=== PATIENT | male | born 1945 | race Caucasian/White ===

== ENCOUNTER 2017-03-21 18:31 | Emergency (ER) | payer MEDICARE, MEDICAID ==
[2017-03-21 19:06] LABS: % BASOPHILS 0.7 % (0.0-2.0); % EOSINOPHILS 2.6 % (0.0-5.0); % LYMPHOCYTES 29.7 % (20.0-50.0); % MONOCYTES 11.6 % (2.0-10.0); % NEUTROPHILS 55.4 % (40.0-80.0); MEAN CELL VOLUME 86.9 fl (80-99); MEAN CORPUSCULAR HEMOGLOBIN 29.7 pg (27.0-31.0); MEAN CORPUSCULAR HGB CONC 34.1 pg (28.0-36.0); MEAN PLATELET VOLUME 7.6 fl; PLATELET COUNT 215 Th/cmm (150-400); RED BLOOD COUNT 3.65 Mil/cmm (3.80-5.80); RED CELL DISTRIBUTION WIDTH 13.7 % (11.5-20.0); WHITE BLOOD COUNT 7.2 Th/cmm (4.8-10.8)
[2017-03-21 19:20] LABS: INR 1.06 (0.5-1.4)
[2017-03-21 19:24] LABS: ALB/GLOB RATIO 1.3 (1.0-1.8); ALKALINE PHOSPHATASE 63 U/L (34-104); ANION GAP 8.9 (7.0-16.0); BILIRUBIN,TOTAL 0.9 mg/dL (0.3-1.0); BUN - UREA NITROGEN 18 mg/dL (7-25); BUN/CREATININE RATIO 22.5; CALCIUM SERUM 9.3 mg/dL (8.6-10.3); CARBON DIOXIDE 25.9 mEq/L (21.0-31.0); CHLORIDE 104 mEq/L (98-107); CHOLESTEROL 132 mg/dL (<200); CREATININE - SERUM 0.8 mg/dL (0.7-1.3); GLUCOSE 100 mg/dL (70-105); POTASSIUM SERUM 3.8 mEq/L (3.5-5.1); SGOT 18 U/L (13-39); SGPT/ALT 16 U/L (7-52); SODIUM SERUM 135 mEq/L (136-145); TRIGLYCERIDES 100 mg/dL (<150)
[2017-03-21 19:25] LABS: HEMATOCRIT 31.8 % (39.0-49.0); HEMOGLOBIN 10.8 gm/dL (12.6-17.4)
--- NOTE | 2017-03-21 19:28 | ED Physician Chart ---
Chief Complaint/HPI - Patient Information Date Seen:: 03/21/17 Time Seen:: 19:20 Allergies:: Allergies Allergy/AdvReac Type Severity Reaction Status Date / Time aripiprazole [From Abilify] Allergy Verified 08/18/16 02:46 trazodone Allergy Verified 08/18/16 21:01 Vitals:: Vital Signs - 8 hr 03/21/17 19:06 Temp 99.0 F HR 72 RR 17 BP 136/50 O2 Sat % 96 Review of Systems - Review of Systems General/Constitutional: No fever, No chills, No weight loss, No weakness, No diaphoresis, No edema, No loss of appetite Skin: No skin lesions, No rash, No bruising Head: No headache, No light-headedness Eyes: No loss of vision, No pain, No diplopia ENT: No earache, No nasal drainage, No sore throat, No tinnitus Neck: No neck pain, No swelling, No thyromegaly, No stiffness, No mass noted Cardio Vascular: No chest pain, No palpitations, No PND, No orthopnea, No edema Pulmonary: No SOB, No cough, No sputum, No wheezing GI: No nausea, No vomiting, No diarrhea, No pain, No melena, No hematochezia, No constipation, No hematemesis G/U: No dysuria, No frequency, No hematuria Musculoskeletal: No bone or joint pain, No back pain, No muscle pain Endocrine: No polyuria, No polydipsia Psychiatric: No prior psych history, No depression, No anxiety, No suicidal ideation Hematopoietic: No bruising, No lymphadenopathy Allergic/Immuno: No urticaria, No angioedema Neurological: No syncope, No focal symptoms, No weakness, No paresthesia, No headache, No seizure, No dizziness, No confusion, No vertigo Past Medical History - Past Medical History Obtainable: Yes Past Medical History: HTN, CVA/TIA, Dyslipidemia, Dementia Family History: None Social History: Smoker, Non Smoker, No Alcohol, No Drug Use, Care Facility Surgical History: None Psychiatricy History: None Family Medical History - Family Member Mother History Unknown: Yes Physical Exam - Physical Examination General/Constitutional: Awake, Well-developed, well-nourished, Alert, No distress, GCS 15, Non-toxic appearing, Ambulatory Other Gen/Cons comments:: demented Head: Atraumatic Eyes: Lids, conjuctiva normal, PERRL, EOMI Skin: Nl inspection, No rash, No skin lesions, No ecchymosis, Well hydrated, No lymphadenopathy ENMT: External ears, nose nl, Nasal exam nl, Lips, teeth, gums nl Neck: Nontender, Full ROM w/o pain, No JVD, No nuchal rigidity, No bruit, No mass, No stridor Respiratory: Nl effort/Exclusion, Clear to Auscultation, No Wheeze/Rhonchi/Rales Cardio Vascular: RRR, No murmur, gallop, rubs, NL S1 S2 GI: No tenderness/rebounding/guarding, No organomegaly, No hernia, Normal BS's, Nondistended, No mass/bruits, No McBurney tenderness : No CVA tenderness Extremities: No tenderness or effusion, Full ROM, normal strength in all extremities, No edema, Normal digits & nails Neuro/Psych: Alert/oriented, DTR's symmetric, Normal sensory exam, Normal motor strength, Judgement/insight normal, Mood normal, Normal gait, No focal deficits Misc: normal gait, Normal back, No paraspinal tenderness Labs/Radiology/EKG Results - Lab Results Results: Laboratory Tests 03/21/17 03/21/17 03/21/17 18:50 18:50 18:50 WBC 7.2 RBC 3.65 L Hgb 10.8 L D Hct 31.8 L D MCV 86.9 MCH 29.7 MCHC Differential 34.1 RDW 13.7 Plt Count 215 MPV 7.6 Neutrophils % 55.4 Lymphocytes % 29.7 Monocytes % 11.6 H Eosinophils % 2.6 Basophils % 0.7 PT 11.0 INR 1.06 PTT (Actin FS) 25.8 L Sodium Potassium Chloride Carbon Dioxide Anion Gap BUN Creatinine Est GFR ( Amer) Est GFR (Non-Af Amer) BUN/Creatinine Ratio Glucose Calcium Total Bilirubin AST ALT Alkaline Phosphatase Troponin I Total Protein Albumin Globulin Albumin/Globulin Ratio Triglycerides 100 Cholesterol 132 LDL Cholesterol Direct 91 HDL Cholesterol 30 03/21/17 03/21/17 18:50 18:50 WBC RBC Hgb Hct MCV MCH MCHC Differential RDW Plt Count MPV Neutrophils % Lymphocytes % Monocytes % Eosinophils % Basophils % PT INR PTT (Actin FS) Sodium 135 L Potassium 3.8 Chloride 104 Carbon Dioxide 25.9 Anion Gap 8.9 BUN 18 Creatinine 0.8 Est GFR ( Amer) TNP Est GFR (Non-Af Amer) TNP BUN/Creatinine Ratio 22.5 Glucose 100 Calcium 9.3 Total Bilirubin 0.9 AST 18 ALT 16 Alkaline Phosphatase 63 Troponin I < 0.01 L Total Protein 7.0 Albumin 3.9 L Globulin 3.1 Albumin/Globulin Ratio 1.3 Triglycerides Cholesterol LDL Cholesterol Direct HDL Cholesterol ED Septic Shock - . Is Septic Shock (SBP<90, OR Lactate>4 mmol\L) present?: No - <6hrs of presentation: Vital Signs: Vital Signs - 8 hr 03/21/17 19:06 Temp 99.0 F HR 72 RR 17 BP 136/50 O2 Sat % 96 Reassessment (Disposition) - Reassessment Reassessment Condition:: Unchanged - Patient Disposition Discharge/Transfer:: Acute Care w/in this hosp ED Discharge Plan - Patient Disposition Admit/Discharge/Transfer: PT DISCHARGED HOME Condition at Disposition: Improved Instructions: Bronchitis, [id number]
--- NOTE | 2017-03-22 11:22 | Diagnostic Imaging Report ---
Portable chest x-ray HISTORY: Shortness of breath The heart is enlarged. Atherosclerotic calcification seen in the aorta. No focal pulmonary processes. Surgical changes noted. IMPRESSION: 1. No acute abnormalities 2. Cardiomegaly with atherosclerotic vascular changes 3. Surgical changes
== END 2017-03-21 19:45 | disposition home or self-care (01) ==
LOC: ER 18:31
DX: F03.90 Unspecified dementia, unspecified severity, without behavioral disturbance, psychotic disturbance, mood disturbance, and anxiety (principal); I10 Essential (primary) hypertension; Z86.73 Personal history of transient ischemic attack (TIA), and cerebral infarction without residual deficits; E78.5 Hyperlipidemia, unspecified; Z88.8 Allergy status to other drugs, medicaments and biological substances
CPT/HCPCS: 36415-UA; 71010-TC; 80053-TC; 80061-TC; 84443-TC; 84484-TC; 85025-TC; 85610-TC; 85730-TC; 86592-TC; 93005

== ENCOUNTER 2017-03-22 17:13 | Inpatient (IN) | payer MEDICARE, MEDICAID ==
--- NOTE | 2017-03-22 17:51 | ED Physician Chart ---
Chief Complaint/HPI - Patient Information Date Seen:: 03/22/17 Time Seen:: 17:45 Chief Complaint:: difficulty caring for self History of Present Illness:: pt brought in by his [id number]. she is concerned he has a long hx of mental dz and has been homeless. he has mixed up his bank account and has no money and refuses to bath. she believes he is unable to care for himself. he has prior psych admits (here and others) for bipolar dz and ptsd. PMH he denies cva hx for me (but was put down as pos in dr mott report last nt) , hx of aorta repair w goretex graft, htn hx (compliant /well ctrld per pt), no DM hx, no [place] hx. pt states he is refusing to allow a lab draw bc he was here last nt for same thing and had labs done then. (Record is unclear...Dr Mott note is missing cc and hpi and shows bronchitis as dc dx? ) Labs do appear to have been done except for ua and u drug screen, which I have added. no recent fever/illness. Allergies:: Allergies Allergy/AdvReac Type Severity Reaction Status Date / Time aripiprazole [From Abilify] Allergy Verified 08/18/16 02:46 trazodone Allergy Verified 08/18/16 21:01 Vitals:: Vital Signs - 8 hr 03/22/17 17:26 Temp 98.7 F HR 80 RR 16 BP 135/60 O2 Sat % 95 Historian:: Patient, Family Member (ex-partner) Review of Systems - Review of Systems General/Constitutional: No fever, No chills, No weight loss, No weakness, No diaphoresis, No edema, No loss of appetite Skin: No skin lesions, No rash, No bruising Head: No headache, No light-headedness Eyes: No loss of vision, No pain, No diplopia ENT: No earache, No nasal drainage, No sore throat, No tinnitus Neck: No neck pain, No swelling, No thyromegaly, No stiffness, No mass noted Cardio Vascular: No chest pain, No palpitations, No PND, No orthopnea, No edema Pulmonary: No SOB, No cough, No sputum, No wheezing GI: No nausea, No vomiting, No diarrhea, No pain, No melena, No hematochezia, No constipation, No hematemesis G/U: No dysuria, No frequency, No hematuria Musculoskeletal: No bone or joint pain, No back pain, No muscle pain Endocrine: No polyuria, No polydipsia Psychiatric: Prior psych history, Depression, Anxiety, No suicidal ideation, No homicidal ideation, No auditory hallucination, No visual hallucination Hematopoietic: No bruising, No lymphadenopathy Allergic/Immuno: No urticaria, No angioedema Neurological: No syncope, No focal symptoms, No weakness, No paresthesia, No headache, No seizure, No dizziness, Confusion, No vertigo Past Medical History - Past Medical History Past Medical History: HTN, Dyslipidemia, Other (hx of aorta repair w goretex graft) Social History: Homeless (at times. has a apt now shared w some local people) Psychiatricy History: Bipolar, Dementia (? some advancing per gf), Other (ptsd) Medication: Reviewed Family Medical History - Family Member Mother History Unknown: Yes Physical Exam - Physical Examination General/Constitutional: Awake, Well-developed, well-nourished, Alert, No distress, GCS 15, Non-toxic appearing, Ambulatory Other Gen/Cons comments:: mild anxious//alert//somewhat demanding (pt wants meal before he has explained to me why he is here) Head: Atraumatic Eyes: Lids, conjuctiva normal, PERRL, EOMI Skin: Nl inspection, No rash, No skin lesions, No ecchymosis, Well hydrated, No lymphadenopathy ENMT: External ears, nose nl, Nasal exam nl, Lips, teeth, gums nl Neck: Nontender, Full ROM w/o pain, No JVD, No nuchal rigidity, No bruit, No mass, No stridor Respiratory: Nl effort/Exclusion, Clear to Auscultation, No Wheeze/Rhonchi/Rales Cardio Vascular: RRR, No murmur, gallop, rubs, NL S1 S2 GI: No tenderness/rebounding/guarding, No organomegaly, No hernia, Normal BS's, Nondistended, No mass/bruits, No McBurney tenderness : No CVA tenderness Extremities: No tenderness or effusion, Full ROM, normal strength in all extremities, No edema, Normal digits & nails Neuro/Psych: Alert/oriented, DTR's symmetric, Normal sensory exam, Normal motor strength, Mood normal, Normal gait, No focal deficits Misc: normal gait, Normal back, No paraspinal tenderness Assessment - Assessment General Assessment: requested psych eval at 7pm however it has still not been completed by 9;30pm. multiple requests made. pt is unruly at times demanding food and wandering out the door at times despite our attempts to dissuade him. he is not stating suicidal or homicidal. no evidence of hallucinations. ED Septic Shock - . Is Septic Shock (SBP<90, OR Lactate>4 mmol\L) present?: No - <6hrs of presentation: Vital Signs: Vital Signs - 8 hr 03/22/17 17:26 Temp 98.7 F HR 80 RR 16 BP 135/60 O2 Sat % 95 Reassessment (Disposition) - Reassessment Reassessment:: psy eval completed around 10pm. [facility] (11;21p) Reassessment Condition:: Unchanged - Diagnosis Diagnosis:: failure to thrive gravely psychologically disabled and unable to care for self agitation - Patient Disposition Admitted to:: [facility] Condition at Disposition:: Unchanged ED Discharge Plan - Patient Disposition Instructions: Psychosis
[2017-03-22 21:33] LABS: AMPHETAMINE URINE NEGATIVE (NEGATIVE); BARBITURATES URINE NEGATIVE (NEGATIVE)
[2017-03-22 21:34] LABS: METHADONE URINE NEGATIVE (NEGATIVE)
[2017-03-22 21:59] LABS: URINE BILIRUBIN SMALL (NEGATIVE); URINE BLOOD MODERATE (NEGATIVE); URINE COLOR YELLOW; URINE GLUCOSE (UA) 100 mg/dL (NEGATIVE); URINE KETONE NEGATIVE (NEGATIVE); URINE PH 6.5
[2017-03-22 22:00] LABS: URINE BACTERIA NONE SEEN /hpf (NONE SEEN); URINE EPITHELIAL CELLS NONE SEEN /lpf (FEW); URINE WBC 0-2 /hpf (0-5)
[2017-03-22] MEDS ORDERED: Magnesium Hydroxide (MOM) 30 mL UDC PO PRN (23:54)
[2017-03-22] MEDS ORDERED: Maalox 30 mL Cup PO PRN (23:54)
[2017-03-23 00:32] VITALS: BP 124/65
[2017-03-23] MEDS: Multivitamin Tab PO SCH (08:41)
--- NOTE | 2017-03-23 12:48 | History and Physical ---
History of Present Illness - HPI Chief Complaint: UNABLE TO CARE FOR SELF HPI: THIS IS A 71 YEAR OLD MALE IS ADMITTED TO THE GEROPSYCH UNIT. ACCORDING TO ER RECORDS PATIENT WAS BROUGHT TO THE ER BY HIS , PATIENT APPARENTLY HAS BEEN REFUSING TO TAKE BATHS. Vital Signs: Last Vital Signs Temp 97.3 F 03/23/17 06:41 Pulse 73 03/23/17 11:06 Resp 20 03/23/17 11:06 BP 151/63 03/23/17 06:41 Pulse Ox 97 03/23/17 06:41 Past Medical History Cardiovascular: Report: HTN Pulmonary: Report: No Pertinent Hx PARASITOLOGY TEACHER: Report: No Pertinent Hx GI: Report: No Pertinent Hx Psych: Report: No Pertinent Hx Musculoskeletal: Report: No Pertinent Hx Rheumatologic: Report: No pertinent Hx Infectious Disease: Report: No Pertinent Hx Renal/: Report: No Pertinent Hx Endocrine: Report: No Pertinent Hx Dermatology: Report: No Pertinent Hx - Past Surgical History Past Surgical History: Other (AORTA REPAIR WITH GORETEX GRAFT) Family Medical History - Family Member Mother History Unknown: Yes (NONCONTRIBUTORY) Ethnicity: Unknown Living Status: Unknown Hx Family Cancer: (Unknown) Hx Family Coronary Artery Disease: (Unknown) Hx Family Congestive Heart Failure: (Unknown) Hx Family Hypertension: (Unknown) Hx Family Stroke: (Unknown) Hx Family Diabetes: (Unknown) Hx Family Seizures: (Unknown) Hx Family Dementia: (Unknown) Hx Family AIDS: (Unknown) Hx Family HIV: No Hx Family COPD: (Unknown) Hx Family Hepatitis: (Unknown) Hx Family Psychiatric Problems: (Unknown) Hx Family Tuberculosis: (Unknown) Social History Smoke: <1 pack per day Alcohol: Occassional Drugs: None Lives: Alone Domestic Violence: Negative Health Maintenance Health Maintenance: Influenza Vaccine - Medications Home Medications: Home Medication Medication Instructions Recorded Type lamoTRIgine [laMICtal] 150 mg PO BID #0 tab 04/20/16 Rx Amlodipine Besylate 5 mg PO DAILY 03/21/17 History Zolpidem Tartrate [Ambien] 5 mg PO HS 03/21/17 History aripIPRAZOLE [Abilify] 10 mg PO DAILY 03/21/17 History - Allergies Allergies/Adverse Reactions: Allergies Allergy/AdvReac Type Severity Reaction Status Date / Time aripiprazole [From Abilify] Allergy Verified 08/18/16 02:46 trazodone Allergy Verified 08/18/16 21:01 Review of Systems - Review of Systems Constitutional: Denies: Fever, Chills Eyes: Denies: Pain, Vision Change ENT: Denies: No Significant, Ear Pain, Ear Discharge, Nose Pain Respiratory: Denies: No Significant, Shortness of Breath Cardiovascular: Denies: Chest Pain, Palpitations Gastrointestinal: Denies: Nausea, Vomiting, Abdominal Pain Musculoskeletal: Denies: Neck Pain, Shoulder Pain, Arm Pain, Back Pain, Hand Pain Skin: Denies: Rash Neurological: Denies: Weakness, Numbness Physical Exam - Physical Exam HEENT: Report: Ears Nose Throat within normal limits, Pharnyx within normal limits Neck: Report: Within normal limits Cardiovascular Systems: Report: +s1/s2 noted, Regular, Rate and Rhythm, no murmurs noted Respiratory: Report: Breath Sounds are within normal limits Abdomen: Report: Non-tender to palpation Back: Report: Inspection of back is within normal limits. Extremities: Report: Non-tender to palpation. Skin: Report: Color of skin is within normal limits Neuro/Psych: Report: Mood affect is within normal limits, Disoriented to name time or place - Lab Results All Lab Results last 24 hours: Laboratory Last Values Urine Source CLEAN C 03/22/17 17:15 Urine Color YELLOW 03/22/17 17:15 Urine Clarity CLEAR (CLEAR) 03/22/17 17:15 Urine pH 6.5 03/22/17 17:15 Ur Specific [place] 1.025 (1.005-1.030) 03/22/17 17:15 Urine Protein 1.0 mg/dL (NEGATIVE) 03/22/17 17:15 Urine Glucose (UA) 100 mg/dL (NEGATIVE) H 03/22/17 17:15 Urine Ketones NEGATIVE mg/dL (NEGATIVE) 03/22/17 17:15 Urine Blood MODERATE (NEGATIVE) H 03/22/17 17:15 Urine Nitrate NEGATIVE (NEGATIVE) 03/22/17 17:15 Urine Bilirubin SMALL (NEGATIVE) H 03/22/17 17:15 Urine Urobilinogen 1.0 E.U./dL (0.2 - 1.0) 03/22/17 17:15 Ur Leukocyte Esterase NEGATIVE (NEGATIVE) 03/22/17 17:15 Urine RBC 5-10 /hpf (0-5) H 03/22/17 17:15 Urine WBC 0-2 /hpf (0-5) 03/22/17 17:15 Ur Epithelial Cells NONE SEEN /lpf (FEW) 03/22/17 17:15 Urine Bacteria NONE SEEN /hpf (NONE SEEN) 03/22/17 17:15 Urine Opiates Screen NEGATIVE (NEGATIVE) 03/22/17 17:15 Urine Methadone Screen NEGATIVE (NEGATIVE) 03/22/17 17:15 Ur Barbiturates Screen NEGATIVE (NEGATIVE) 03/22/17 17:15 Ur Tricyclics Screen NEGATIVE (NEGATIVE) 03/22/17 17:15 Ur Phencyclidine Scrn NEGATIVE (NEGATIVE) 03/22/17 17:15 Amphetamines Screen NEGATIVE (NEGATIVE) 03/22/17 17:15 U Methamphetamines Scrn NEGATIVE (NEGATIVE) 03/22/17 17:15 U Benzodiazepines Scrn NEGATIVE (NEGATIVE) 03/22/17 17:15 U Cocaine Metab Screen NEGATIVE (NEGATIVE) 03/22/17 17:15 U Cannabinoids Screen POSITIVE (NEGATIVE) H 03/22/17 17:15 - Assessment Assessment: Current Active Problems Problem Status Onset PATIENT IS UNABLE TO CARE FOR SELF Acute unable to care for self htn bipolar ptsd - Plan Plan: monitor BP continue bp medications fall precautions cpm
[2017-03-24] MEDS: Multivitamin Tab PO SCH (08:14)
--- NOTE | 2017-03-24 14:12 | Internal Medicine Prog Note ---
Internal Medicine Subjective - Subjective Service Date: 03/24/17 Patient is:: asleep, verbal, in wheelchair Per staff patient has:: no adverse event Internal Medicine Objective - Results Recent Labs: Laboratory Last Values Urine Source CLEAN C 03/22/17 17:15 Urine Color YELLOW 03/22/17 17:15 Urine Clarity CLEAR (CLEAR) 03/22/17 17:15 Urine pH 6.5 03/22/17 17:15 Ur Specific [place] 1.025 (1.005-1.030) 03/22/17 17:15 Urine Protein 1.0 mg/dL (NEGATIVE) 03/22/17 17:15 Urine Glucose (UA) 100 mg/dL (NEGATIVE) H 03/22/17 17:15 Urine Ketones NEGATIVE mg/dL (NEGATIVE) 03/22/17 17:15 Urine Blood MODERATE (NEGATIVE) H 03/22/17 17:15 Urine Nitrate NEGATIVE (NEGATIVE) 03/22/17 17:15 Urine Bilirubin SMALL (NEGATIVE) H 03/22/17 17:15 Urine Urobilinogen 1.0 E.U./dL (0.2 - 1.0) 03/22/17 17:15 Ur Leukocyte Esterase NEGATIVE (NEGATIVE) 03/22/17 17:15 Urine RBC 5-10 /hpf (0-5) H 03/22/17 17:15 Urine WBC 0-2 /hpf (0-5) 03/22/17 17:15 Ur Epithelial Cells NONE SEEN /lpf (FEW) 03/22/17 17:15 Urine Bacteria NONE SEEN /hpf (NONE SEEN) 03/22/17 17:15 Urine Opiates Screen NEGATIVE (NEGATIVE) 03/22/17 17:15 Urine Methadone Screen NEGATIVE (NEGATIVE) 03/22/17 17:15 Ur Barbiturates Screen NEGATIVE (NEGATIVE) 03/22/17 17:15 Ur Tricyclics Screen NEGATIVE (NEGATIVE) 03/22/17 17:15 Ur Phencyclidine Scrn NEGATIVE (NEGATIVE) 03/22/17 17:15 Amphetamines Screen NEGATIVE (NEGATIVE) 03/22/17 17:15 U Methamphetamines Scrn NEGATIVE (NEGATIVE) 03/22/17 17:15 U Benzodiazepines Scrn NEGATIVE (NEGATIVE) 03/22/17 17:15 U Cocaine Metab Screen NEGATIVE (NEGATIVE) 03/22/17 17:15 U Cannabinoids Screen POSITIVE (NEGATIVE) H 03/22/17 17:15 - Physical Exam Vitals and I&O: Vital Signs Temp 98.1 F 03/24/17 05:55 Pulse 73 03/24/17 11:41 Resp 20 03/24/17 11:41 BP 144/67 03/24/17 08:19 Pulse Ox 96 03/24/17 05:55 Intake & Output 03/23/17 03/24/17 03/24/17 18:59 06:59 18:59 Intake Total 1000 240 Balance 1000 240 Intake: Oral 1000 240 Other: # Voids 4 1 # Bowel Movements 1 0 Active Medications: Current Medications Acetaminophen (Tylenol) 650 mg PO Q4HR PRN PRN Reason: Mild Pain / Temp above 100 Stop: 05/21/17 23:53 Al Hydrox/Mg Hydrox/Simethicone (Maalox) 30 ml PO Q4HR PRN PRN Reason: GI DISTRESS Stop: 05/21/17 23:53 Amlodipine Besylate (Norvasc) 5 mg PO DAILY KEELY Stop: 05/23/17 08:59 Last Admin: 03/24/17 08:19 Dose: 5 mg Aripiprazole (Abilify) 10 mg PO DAILY KEELY PRN Reason: Protocol Stop: 05/23/17 08:59 Last Admin: 03/24/17 08:14 Dose: 10 mg Clonidine HCl (Catapres) 0.1 mg PO Q6HR PRN PRN Reason: SBP GREATER THAN 160 Stop: 05/22/17 12:47 Lamotrigine (Lamictal) 25 mg PO BID KEELY PRN Reason: Protocol Stop: 05/22/17 09:59 Last Admin: 03/24/17 08:18 Dose: 25 mg Lamotrigine (Lamictal) 150 mg PO BID KEELY PRN Reason: Protocol Stop: 05/22/17 16:59 Last Admin: 03/24/17 08:13 Dose: 150 mg Lorazepam (Ativan) 0.5 mg PO Q4HR PRN; Protocol PRN Reason: Anxiety Stop: 04/21/17 23:53 Last Admin: 03/24/17 08:18 Dose: 0.5 mg Magnesium Hydroxide (Milk Of Magnesia) 30 ml PO HS PRN PRN Reason: Constipation Multivitamins/Vitamin C (Theragran) 1 tab PO DAILY KEELY Stop: 05/22/17 08:59 Last Admin: 03/24/17 08:14 Dose: 1 tab Mupirocin (Bactroban Oint) 1 appl NS BID KEELY Stop: 03/28/17 17:01 Quetiapine Fumarate (Seroquel) 50 mg PO BID KEELY PRN Reason: Protocol Stop: 05/22/17 09:59 Last Admin: 03/24/17 08:18 Dose: 50 mg Zolpidem Tartrate (Ambien) 5 mg PO HS PRN PRN Reason: Insomnia Stop: 05/21/17 23:53 Last Admin: 03/23/17 21:12 Dose: 5 mg General: alert HEENT: NC/AT, PERRLA Neck: Supple Lungs: CTAB Cardiovascular: RRR, Normal S1, Normal S2, without murmur Abdomen: soft, non-tender, non-distended, positive bowel sound Extremities: clear Neurological: alert - Procedures Procedures: Procedures Procedure Code Date OTHER GROUP THERAPY 94.44 05/24/10 RECREATIONAL THERAPY 93.81 05/24/10 Internal Medicine Assmt/Plan - Assessment Assessment: Current Active Problems Problem Status Onset PATIENT IS UNABLE TO CARE FOR SELF Acute unable to care for self htn bipolar ptsd - Plan Plan: monitor BP continue bp medications fall precautions cpm
[2017-03-25] MEDS: Fluticasone Propionate 0.05mg/Actuation 16gm Nasal Spray NS PRN ×2 (02:58→09:58)
[2017-03-25] MEDS: Multivitamin Tab PO SCH (09:53)
--- NOTE | 2017-03-25 12:43 | Internal Medicine Prog Note ---
Internal Medicine Subjective - Subjective Service Date: 03/25/17 Patient is:: asleep, verbal, in wheelchair Per staff patient has:: no adverse event Internal Medicine Objective - Results Recent Labs: Laboratory Last Values Urine Source CLEAN C 03/22/17 17:15 Urine Color YELLOW 03/22/17 17:15 Urine Clarity CLEAR (CLEAR) 03/22/17 17:15 Urine pH 6.5 03/22/17 17:15 Ur Specific [place] 1.025 (1.005-1.030) 03/22/17 17:15 Urine Protein 1.0 mg/dL (NEGATIVE) 03/22/17 17:15 Urine Glucose (UA) 100 mg/dL (NEGATIVE) H 03/22/17 17:15 Urine Ketones NEGATIVE mg/dL (NEGATIVE) 03/22/17 17:15 Urine Blood MODERATE (NEGATIVE) H 03/22/17 17:15 Urine Nitrate NEGATIVE (NEGATIVE) 03/22/17 17:15 Urine Bilirubin SMALL (NEGATIVE) H 03/22/17 17:15 Urine Urobilinogen 1.0 E.U./dL (0.2 - 1.0) 03/22/17 17:15 Ur Leukocyte Esterase NEGATIVE (NEGATIVE) 03/22/17 17:15 Urine RBC 5-10 /hpf (0-5) H 03/22/17 17:15 Urine WBC 0-2 /hpf (0-5) 03/22/17 17:15 Ur Epithelial Cells NONE SEEN /lpf (FEW) 03/22/17 17:15 Urine Bacteria NONE SEEN /hpf (NONE SEEN) 03/22/17 17:15 Urine Opiates Screen NEGATIVE (NEGATIVE) 03/22/17 17:15 Urine Methadone Screen NEGATIVE (NEGATIVE) 03/22/17 17:15 Ur Barbiturates Screen NEGATIVE (NEGATIVE) 03/22/17 17:15 Ur Tricyclics Screen NEGATIVE (NEGATIVE) 03/22/17 17:15 Ur Phencyclidine Scrn NEGATIVE (NEGATIVE) 03/22/17 17:15 Amphetamines Screen NEGATIVE (NEGATIVE) 03/22/17 17:15 U Methamphetamines Scrn NEGATIVE (NEGATIVE) 03/22/17 17:15 U Benzodiazepines Scrn NEGATIVE (NEGATIVE) 03/22/17 17:15 U Cocaine Metab Screen NEGATIVE (NEGATIVE) 03/22/17 17:15 U Cannabinoids Screen POSITIVE (NEGATIVE) H 03/22/17 17:15 - Physical Exam Vitals and I&O: Vital Signs Temp 97.3 F 03/25/17 06:54 Pulse 82 03/25/17 09:53 Resp 20 03/25/17 08:00 BP 129/75 03/25/17 09:53 Pulse Ox 97 03/25/17 06:54 Intake & Output 03/24/17 03/25/17 03/25/17 18:59 06:59 18:59 Intake Total 1200 Balance 1200 Intake: Oral 1200 Other: # Voids 4 2 # Bowel Movements 1 Active Medications: Current Medications Acetaminophen (Tylenol) 650 mg PO Q4HR PRN PRN Reason: Mild Pain / Temp above 100 Stop: 05/21/17 23:53 Al Hydrox/Mg Hydrox/Simethicone (Maalox) 30 ml PO Q4HR PRN PRN Reason: GI DISTRESS Stop: 05/21/17 23:53 Amlodipine Besylate (Norvasc) 5 mg PO DAILY KEELY Stop: 05/23/17 08:59 Last Admin: 03/25/17 09:53 Dose: 5 mg Clonidine HCl (Catapres) 0.1 mg PO Q6HR PRN PRN Reason: SBP GREATER THAN 160 Stop: 05/22/17 12:47 Fluticasone Propionate (Flonase) 1 spr NS BID PRN PRN Reason: Allergy Symptoms Stop: 05/23/17 16:59 Last Admin: 03/25/17 02:58 Dose: 1 spr Lamotrigine (Lamictal) 25 mg PO BID EKELY PRN Reason: Protocol Stop: 05/22/17 09:59 Last Admin: 03/25/17 09:52 Dose: 25 mg Lamotrigine (Lamictal) 150 mg PO BID KEELY PRN Reason: Protocol Stop: 05/22/17 16:59 Last Admin: 03/25/17 09:52 Dose: 150 mg Lorazepam (Ativan) 0.5 mg PO Q4HR PRN; Protocol PRN Reason: Anxiety Stop: 04/21/17 23:53 Last Admin: 03/25/17 03:04 Dose: 0.5 mg Magnesium Hydroxide (Milk Of Magnesia) 30 ml PO HS PRN PRN Reason: Constipation Multivitamins/Vitamin C (Theragran) 1 tab PO DAILY KEELY Stop: 05/22/17 08:59 Last Admin: 03/25/17 09:53 Dose: 1 tab Mupirocin (Bactroban Oint) 1 appl NS BID KEELY Stop: 03/28/17 17:01 Last Admin: 03/25/17 09:53 Dose: 1 appl Quetiapine Fumarate (Seroquel) 100 mg PO BID KEELY PRN Reason: Protocol Stop: 05/22/17 09:59 Last Admin: 03/25/17 10:04 Dose: Not Given Trazodone HCl (Desyrel) 100 mg PO HS KEELY PRN Reason: Protocol Stop: 05/24/17 20:59 Zolpidem Tartrate (Ambien) 5 mg PO HS PRN PRN Reason: Insomnia Stop: 05/21/17 23:53 Last Admin: 03/24/17 21:52 Dose: 5 mg General: alert HEENT: NC/AT, PERRLA Neck: Supple Lungs: CTAB Cardiovascular: RRR, Normal S1, Normal S2, without murmur Abdomen: soft, non-tender, non-distended, positive bowel sound Extremities: clear Neurological: alert - Procedures Procedures: Procedures Procedure Code Date OTHER GROUP THERAPY 94.44 05/24/10 RECREATIONAL THERAPY 93.81 05/24/10 Internal Medicine Assmt/Plan - Assessment Assessment: Current Active Problems Problem Status Onset PATIENT IS UNABLE TO CARE FOR SELF Acute unable to care for self htn bipolar ptsd - Plan Plan: monitor BP continue bp medications fall precautions cpm
[2017-03-26] MEDS: Multivitamin Tab PO SCH (09:31)
--- NOTE | 2017-03-26 10:00 | Internal Medicine Prog Note ---
Internal Medicine Subjective - Subjective Service Date: 03/26/17 Patient seen and examined:: with staff Patient is:: asleep, verbal, in wheelchair Per staff patient has:: no adverse event Internal Medicine Objective - Results Recent Labs: Laboratory Last Values Urine Source CLEAN C 03/22/17 17:15 Urine Color YELLOW 03/22/17 17:15 Urine Clarity CLEAR (CLEAR) 03/22/17 17:15 Urine pH 6.5 03/22/17 17:15 Ur Specific [place] 1.025 (1.005-1.030) 03/22/17 17:15 Urine Protein 1.0 mg/dL (NEGATIVE) 03/22/17 17:15 Urine Glucose (UA) 100 mg/dL (NEGATIVE) H 03/22/17 17:15 Urine Ketones NEGATIVE mg/dL (NEGATIVE) 03/22/17 17:15 Urine Blood MODERATE (NEGATIVE) H 03/22/17 17:15 Urine Nitrate NEGATIVE (NEGATIVE) 03/22/17 17:15 Urine Bilirubin SMALL (NEGATIVE) H 03/22/17 17:15 Urine Urobilinogen 1.0 E.U./dL (0.2 - 1.0) 03/22/17 17:15 Ur Leukocyte Esterase NEGATIVE (NEGATIVE) 03/22/17 17:15 Urine RBC 5-10 /hpf (0-5) H 03/22/17 17:15 Urine WBC 0-2 /hpf (0-5) 03/22/17 17:15 Ur Epithelial Cells NONE SEEN /lpf (FEW) 03/22/17 17:15 Urine Bacteria NONE SEEN /hpf (NONE SEEN) 03/22/17 17:15 Urine Opiates Screen NEGATIVE (NEGATIVE) 03/22/17 17:15 Urine Methadone Screen NEGATIVE (NEGATIVE) 03/22/17 17:15 Ur Barbiturates Screen NEGATIVE (NEGATIVE) 03/22/17 17:15 Ur Tricyclics Screen NEGATIVE (NEGATIVE) 03/22/17 17:15 Ur Phencyclidine Scrn NEGATIVE (NEGATIVE) 03/22/17 17:15 Amphetamines Screen NEGATIVE (NEGATIVE) 03/22/17 17:15 U Methamphetamines Scrn NEGATIVE (NEGATIVE) 03/22/17 17:15 U Benzodiazepines Scrn NEGATIVE (NEGATIVE) 03/22/17 17:15 U Cocaine Metab Screen NEGATIVE (NEGATIVE) 03/22/17 17:15 U Cannabinoids Screen POSITIVE (NEGATIVE) H 03/22/17 17:15 - Physical Exam Vitals and I&O: Vital Signs Temp 97.8 F 03/26/17 06:49 Pulse 77 03/26/17 09:32 Resp 18 03/26/17 06:49 BP 145/72 03/26/17 09:32 Pulse Ox 97 03/26/17 06:49 Intake & Output 03/25/17 03/26/17 03/26/17 18:59 06:59 18:59 Intake Total 1200 Balance 1200 Intake: Oral 1200 Other: # Voids 4 2 # Bowel Movements 1 Active Medications: Current Medications Acetaminophen (Tylenol) 650 mg PO Q4HR PRN PRN Reason: Mild Pain / Temp above 100 Stop: 05/21/17 23:53 Al Hydrox/Mg Hydrox/Simethicone (Maalox) 30 ml PO Q4HR PRN PRN Reason: GI DISTRESS Stop: 05/21/17 23:53 Amlodipine Besylate (Norvasc) 5 mg PO DAILY [facility] Stop: 05/23/17 08:59 Last Admin: 03/26/17 09:32 Dose: 5 mg Clonidine HCl (Catapres) 0.1 mg PO Q6HR PRN PRN Reason: SBP GREATER THAN 160 Stop: 05/22/17 12:47 Fluticasone Propionate (Flonase) 1 spr NS BID PRN PRN Reason: Allergy Symptoms Stop: 05/23/17 16:59 Last Admin: 03/25/17 09:58 Dose: 1 spr Lamotrigine (Lamictal) 25 mg PO BID [facility] PRN Reason: Protocol Stop: 05/22/17 09:59 Last Admin: 03/26/17 09:32 Dose: 25 mg Lamotrigine (Lamictal) 150 mg PO BID [facility] PRN Reason: Protocol Stop: 05/22/17 16:59 Last Admin: 03/26/17 09:29 Dose: 150 mg Lorazepam (Ativan) 0.5 mg PO Q4HR PRN; Protocol PRN Reason: Anxiety Stop: 04/21/17 23:53 Last Admin: 03/25/17 22:15 Dose: 0.5 mg Magnesium Hydroxide (Milk Of Magnesia) 30 ml PO HS PRN PRN Reason: Constipation Multivitamins/Vitamin C (Theragran) 1 tab PO DAILY [facility] Stop: 05/22/17 08:59 Last Admin: 03/26/17 09:31 Dose: 1 tab Mupirocin (Bactroban Oint) 1 appl NS BID [facility] Stop: 03/28/17 17:01 Last Admin: 03/26/17 09:29 Dose: 1 appl Quetiapine Fumarate (Seroquel) 100 mg PO BID [facility] PRN Reason: Protocol Stop: 05/22/17 09:59 Last Admin: 03/26/17 09:30 Dose: 100 mg Zolpidem Tartrate (Ambien) 5 mg PO HS PRN PRN Reason: Insomnia Stop: 05/21/17 23:53 Last Admin: 03/25/17 22:13 Dose: 5 mg General: alert HEENT: NC/AT, PERRLA Neck: Supple Lungs: CTAB Cardiovascular: RRR, Normal S1, Normal S2, without murmur Abdomen: soft, non-tender, non-distended, positive bowel sound Extremities: clear Neurological: alert - Procedures Procedures: Procedures Procedure Code Date OTHER GROUP THERAPY 94.44 05/24/10 RECREATIONAL THERAPY 93.81 05/24/10 Internal Medicine Assmt/Plan - Assessment Assessment: Current Active Problems Problem Status Onset PATIENT IS UNABLE TO CARE FOR SELF Acute unable to care for self htn bipolar ptsd - Plan Plan: monitor BP continue bp medications fall precautions cpm
[2017-03-26] MEDS: Fluticasone Propionate 0.05mg/Actuation 16gm Nasal Spray NS PRN (16:24)
[2017-03-27] MEDS: Multivitamin Tab PO SCH (09:19)
--- NOTE | 2017-03-27 15:36 | Internal Medicine Prog Note ---
Internal Medicine Subjective - Subjective Service Date: 03/27/17 Patient is:: asleep, verbal, in wheelchair Per staff patient has:: no adverse event Internal Medicine Objective - Results Recent Labs: Laboratory Last Values Urine Source CLEAN C 03/22/17 17:15 Urine Color YELLOW 03/22/17 17:15 Urine Clarity CLEAR (CLEAR) 03/22/17 17:15 Urine pH 6.5 03/22/17 17:15 Ur Specific [place] 1.025 (1.005-1.030) 03/22/17 17:15 Urine Protein 1.0 mg/dL (NEGATIVE) 03/22/17 17:15 Urine Glucose (UA) 100 mg/dL (NEGATIVE) H 03/22/17 17:15 Urine Ketones NEGATIVE mg/dL (NEGATIVE) 03/22/17 17:15 Urine Blood MODERATE (NEGATIVE) H 03/22/17 17:15 Urine Nitrate NEGATIVE (NEGATIVE) 03/22/17 17:15 Urine Bilirubin SMALL (NEGATIVE) H 03/22/17 17:15 Urine Urobilinogen 1.0 E.U./dL (0.2 - 1.0) 03/22/17 17:15 Ur Leukocyte Esterase NEGATIVE (NEGATIVE) 03/22/17 17:15 Urine RBC 5-10 /hpf (0-5) H 03/22/17 17:15 Urine WBC 0-2 /hpf (0-5) 03/22/17 17:15 Ur Epithelial Cells NONE SEEN /lpf (FEW) 03/22/17 17:15 Urine Bacteria NONE SEEN /hpf (NONE SEEN) 03/22/17 17:15 Urine Opiates Screen NEGATIVE (NEGATIVE) 03/22/17 17:15 Urine Methadone Screen NEGATIVE (NEGATIVE) 03/22/17 17:15 Ur Barbiturates Screen NEGATIVE (NEGATIVE) 03/22/17 17:15 Ur Tricyclics Screen NEGATIVE (NEGATIVE) 03/22/17 17:15 Ur Phencyclidine Scrn NEGATIVE (NEGATIVE) 03/22/17 17:15 Amphetamines Screen NEGATIVE (NEGATIVE) 03/22/17 17:15 U Methamphetamines Scrn NEGATIVE (NEGATIVE) 03/22/17 17:15 U Benzodiazepines Scrn NEGATIVE (NEGATIVE) 03/22/17 17:15 U Cocaine Metab Screen NEGATIVE (NEGATIVE) 03/22/17 17:15 U Cannabinoids Screen POSITIVE (NEGATIVE) H 03/22/17 17:15 - Physical Exam Vitals and I&O: Vital Signs Temp 97.8 F 03/27/17 06:51 Pulse 80 03/27/17 09:19 Resp 18 03/27/17 06:51 BP 140/70 03/27/17 09:19 Pulse Ox 97 03/27/17 06:51 Intake & Output 03/26/17 03/27/17 03/27/17 18:59 06:59 18:59 Intake Total 900 Balance 900 Intake: Oral 900 Other: # Voids 4 # Bowel Movements 1 Active Medications: Current Medications Acetaminophen (Tylenol) 650 mg PO Q4HR PRN PRN Reason: Mild Pain / Temp above 100 Stop: 05/21/17 23:53 Al Hydrox/Mg Hydrox/Simethicone (Maalox) 30 ml PO Q4HR PRN PRN Reason: GI DISTRESS Stop: 05/21/17 23:53 Amlodipine Besylate (Norvasc) 5 mg PO DAILY [facility] Stop: 05/23/17 08:59 Last Admin: 03/27/17 09:19 Dose: 5 mg Clonidine HCl (Catapres) 0.1 mg PO Q6HR PRN PRN Reason: SBP GREATER THAN 160 Stop: 05/22/17 12:47 Fluticasone Propionate (Flonase) 1 spr NS BID PRN PRN Reason: Allergy Symptoms Stop: 05/23/17 16:59 Last Admin: 03/26/17 16:24 Dose: 1 spr Lamotrigine (Lamictal) 25 mg PO BID [facility] PRN Reason: Protocol Stop: 05/22/17 09:59 Last Admin: 03/27/17 09:18 Dose: 25 mg Lamotrigine (Lamictal) 150 mg PO BID [facility] PRN Reason: Protocol Stop: 05/22/17 16:59 Last Admin: 03/27/17 09:17 Dose: 150 mg Lorazepam (Ativan) 0.5 mg PO Q4HR PRN; Protocol PRN Reason: Anxiety Stop: 04/21/17 23:53 Last Admin: 03/26/17 22:19 Dose: 0.5 mg Magnesium Hydroxide (Milk Of Magnesia) 30 ml PO HS PRN PRN Reason: Constipation Multivitamins/Vitamin C (Theragran) 1 tab PO DAILY [facility] Stop: 05/22/17 08:59 Last Admin: 03/27/17 09:19 Dose: 1 tab Mupirocin (Bactroban Oint) 1 appl NS BID [facility] Stop: 03/28/17 17:01 Last Admin: 03/27/17 09:19 Dose: 1 appl Quetiapine Fumarate 100 mg/ (Quetiapine Fumarate 25 mg) 125 mg PO BID [facility] Stop: 05/26/17 08:59 Last Admin: 03/27/17 09:19 Dose: 125 mg Zolpidem Tartrate (Ambien) 5 mg PO HS PRN PRN Reason: Insomnia Stop: 05/21/17 23:53 Last Admin: 03/26/17 22:19 Dose: 5 mg General: alert HEENT: NC/AT, PERRLA Neck: Supple Lungs: CTAB Cardiovascular: RRR, Normal S1, Normal S2, without murmur Abdomen: soft, non-tender, non-distended, positive bowel sound Extremities: clear Neurological: alert - Procedures Procedures: Procedures Procedure Code Date OTHER GROUP THERAPY 94.44 05/24/10 RECREATIONAL THERAPY 93.81 05/24/10 Internal Medicine Assmt/Plan - Assessment Assessment: Current Active Problems Problem Status Onset PATIENT IS UNABLE TO CARE FOR SELF Acute unable to care for self htn bipolar ptsd mrsa nares - Plan Plan: bactroban bid monitor BP continue bp medications fall precautions cpm
[2017-03-28] MEDS: Multivitamin Tab PO SCH (08:04)
--- NOTE | 2017-03-28 13:07 | Internal Medicine Prog Note ---
Internal Medicine Subjective - Subjective Service Date: 03/28/17 Patient is:: asleep, verbal, in wheelchair Per staff patient has:: no adverse event Internal Medicine Objective - Results Recent Labs: Laboratory Last Values Urine Source CLEAN C 03/22/17 17:15 Urine Color YELLOW 03/22/17 17:15 Urine Clarity CLEAR (CLEAR) 03/22/17 17:15 Urine pH 6.5 03/22/17 17:15 Ur Specific [place] 1.025 (1.005-1.030) 03/22/17 17:15 Urine Protein 1.0 mg/dL (NEGATIVE) 03/22/17 17:15 Urine Glucose (UA) 100 mg/dL (NEGATIVE) H 03/22/17 17:15 Urine Ketones NEGATIVE mg/dL (NEGATIVE) 03/22/17 17:15 Urine Blood MODERATE (NEGATIVE) H 03/22/17 17:15 Urine Nitrate NEGATIVE (NEGATIVE) 03/22/17 17:15 Urine Bilirubin SMALL (NEGATIVE) H 03/22/17 17:15 Urine Urobilinogen 1.0 E.U./dL (0.2 - 1.0) 03/22/17 17:15 Ur Leukocyte Esterase NEGATIVE (NEGATIVE) 03/22/17 17:15 Urine RBC 5-10 /hpf (0-5) H 03/22/17 17:15 Urine WBC 0-2 /hpf (0-5) 03/22/17 17:15 Ur Epithelial Cells NONE SEEN /lpf (FEW) 03/22/17 17:15 Urine Bacteria NONE SEEN /hpf (NONE SEEN) 03/22/17 17:15 Urine Opiates Screen NEGATIVE (NEGATIVE) 03/22/17 17:15 Urine Methadone Screen NEGATIVE (NEGATIVE) 03/22/17 17:15 Ur Barbiturates Screen NEGATIVE (NEGATIVE) 03/22/17 17:15 Ur Tricyclics Screen NEGATIVE (NEGATIVE) 03/22/17 17:15 Ur Phencyclidine Scrn NEGATIVE (NEGATIVE) 03/22/17 17:15 Amphetamines Screen NEGATIVE (NEGATIVE) 03/22/17 17:15 U Methamphetamines Scrn NEGATIVE (NEGATIVE) 03/22/17 17:15 U Benzodiazepines Scrn NEGATIVE (NEGATIVE) 03/22/17 17:15 U Cocaine Metab Screen NEGATIVE (NEGATIVE) 03/22/17 17:15 U Cannabinoids Screen POSITIVE (NEGATIVE) H 03/22/17 17:15 - Physical Exam Vitals and I&O: Vital Signs Temp 97.6 F 03/28/17 06:41 Pulse 78 03/28/17 09:33 Resp 20 03/28/17 09:33 BP 147/79 03/28/17 08:02 Pulse Ox 97 03/28/17 06:41 Intake & Output 03/27/17 03/28/17 03/28/17 18:59 06:59 18:59 Intake Total 900 120 Balance 900 120 Intake: Oral 900 120 Other: # Voids 3 3 # Bowel Movements 1 Active Medications: Current Medications Acetaminophen (Tylenol) 650 mg PO Q4HR PRN PRN Reason: Mild Pain / Temp above 100 Stop: 05/21/17 23:53 Al Hydrox/Mg Hydrox/Simethicone (Maalox) 30 ml PO Q4HR PRN PRN Reason: GI DISTRESS Stop: 05/21/17 23:53 Amlodipine Besylate (Norvasc) 5 mg PO DAILY [facility] Stop: 05/23/17 08:59 Last Admin: 03/28/17 08:02 Dose: 5 mg Clonidine HCl (Catapres) 0.1 mg PO Q6HR PRN PRN Reason: SBP GREATER THAN 160 Stop: 05/22/17 12:47 Fluticasone Propionate (Flonase) 1 spr NS BID [facility] Stop: 05/27/17 16:59 Lamotrigine (Lamictal) 25 mg PO BID [facility] PRN Reason: Protocol Stop: 05/22/17 09:59 Last Admin: 03/28/17 08:03 Dose: 25 mg Lamotrigine (Lamictal) 150 mg PO BID [facility] PRN Reason: Protocol Stop: 05/22/17 16:59 Last Admin: 03/28/17 08:03 Dose: 150 mg Lorazepam (Ativan) 0.5 mg PO Q4HR PRN; Protocol PRN Reason: Anxiety Stop: 04/21/17 23:53 Last Admin: 03/28/17 08:03 Dose: 0.5 mg Magnesium Hydroxide (Milk Of Magnesia) 30 ml PO HS PRN PRN Reason: Constipation Multivitamins/Vitamin C (Theragran) 1 tab PO DAILY [facility] Stop: 05/22/17 08:59 Last Admin: 03/28/17 08:04 Dose: 1 tab Mupirocin (Bactroban Oint) 1 appl NS BID [facility] Stop: 03/28/17 17:01 Last Admin: 03/28/17 08:05 Dose: 1 appl Quetiapine Fumarate 100 mg/ (Quetiapine Fumarate 25 mg) 125 mg PO BID [facility] Stop: 05/26/17 08:59 Last Admin: 03/28/17 08:02 Dose: 125 mg Tamsulosin HCl (Flomax) 0.4 mg PO DAILY [facility] Stop: 05/28/17 08:59 Zolpidem Tartrate (Ambien) 5 mg PO HS PRN PRN Reason: Insomnia Stop: 05/21/17 23:53 Last Admin: 03/27/17 20:32 Dose: 5 mg General: alert HEENT: NC/AT, PERRLA Neck: Supple Lungs: CTAB Cardiovascular: RRR, Normal S1, Normal S2, without murmur Abdomen: soft, non-tender, non-distended, positive bowel sound Extremities: clear Neurological: alert - Procedures Procedures: Procedures Procedure Code Date OTHER GROUP THERAPY 94.44 05/24/10 RECREATIONAL THERAPY 93.81 05/24/10 Internal Medicine Assmt/Plan - Assessment Assessment: Current Active Problems Problem Status Onset PATIENT IS UNABLE TO CARE FOR SELF Acute unable to care for self htn bipolar ptsd mrsa nares seasonal allergy - Plan Plan: monitor BP continue bp medications fall precautions cpm
[2017-03-28] MEDS: Fluticasone Propionate 0.05mg/Actuation 16gm Nasal Spray NS SCH (17:25)
[2017-03-29] MEDS: Multivitamin Tab PO SCH (09:02)
[2017-03-29] MEDS: Fluticasone Propionate 0.05mg/Actuation 16gm Nasal Spray NS SCH ×2 (09:03→16:31)
--- NOTE | 2017-03-29 14:49 | Internal Medicine Prog Note ---
Internal Medicine Subjective - Subjective Service Date: 03/29/17 Patient seen and examined:: with staff Patient is:: asleep, verbal, in wheelchair Per staff patient has:: no adverse event Internal Medicine Objective - Results Recent Labs: Laboratory Last Values Urine Source CLEAN C 03/22/17 17:15 Urine Color YELLOW 03/22/17 17:15 Urine Clarity CLEAR (CLEAR) 03/22/17 17:15 Urine pH 6.5 03/22/17 17:15 Ur Specific [place] 1.025 (1.005-1.030) 03/22/17 17:15 Urine Protein 1.0 mg/dL (NEGATIVE) 03/22/17 17:15 Urine Glucose (UA) 100 mg/dL (NEGATIVE) H 03/22/17 17:15 Urine Ketones NEGATIVE mg/dL (NEGATIVE) 03/22/17 17:15 Urine Blood MODERATE (NEGATIVE) H 03/22/17 17:15 Urine Nitrate NEGATIVE (NEGATIVE) 03/22/17 17:15 Urine Bilirubin SMALL (NEGATIVE) H 03/22/17 17:15 Urine Urobilinogen 1.0 E.U./dL (0.2 - 1.0) 03/22/17 17:15 Ur Leukocyte Esterase NEGATIVE (NEGATIVE) 03/22/17 17:15 Urine RBC 5-10 /hpf (0-5) H 03/22/17 17:15 Urine WBC 0-2 /hpf (0-5) 03/22/17 17:15 Ur Epithelial Cells NONE SEEN /lpf (FEW) 03/22/17 17:15 Urine Bacteria NONE SEEN /hpf (NONE SEEN) 03/22/17 17:15 Urine Opiates Screen NEGATIVE (NEGATIVE) 03/22/17 17:15 Urine Methadone Screen NEGATIVE (NEGATIVE) 03/22/17 17:15 Ur Barbiturates Screen NEGATIVE (NEGATIVE) 03/22/17 17:15 Ur Tricyclics Screen NEGATIVE (NEGATIVE) 03/22/17 17:15 Ur Phencyclidine Scrn NEGATIVE (NEGATIVE) 03/22/17 17:15 Amphetamines Screen NEGATIVE (NEGATIVE) 03/22/17 17:15 U Methamphetamines Scrn NEGATIVE (NEGATIVE) 03/22/17 17:15 U Benzodiazepines Scrn NEGATIVE (NEGATIVE) 03/22/17 17:15 U Cocaine Metab Screen NEGATIVE (NEGATIVE) 03/22/17 17:15 U Cannabinoids Screen POSITIVE (NEGATIVE) H 03/22/17 17:15 - Physical Exam Vitals and I&O: Vital Signs Temp 97.9 F 03/29/17 05:47 Pulse 80 03/29/17 09:03 Resp 19 03/29/17 05:47 BP 143/78 03/29/17 09:03 Pulse Ox 99 03/29/17 05:47 Intake & Output 03/28/17 03/29/17 03/29/17 18:59 06:59 18:59 Intake Total 1200 60 Balance 1200 60 Intake: Oral 1200 60 Other: # Voids 4 2 # Bowel Movements 1 0 Active Medications: Current Medications Acetaminophen (Tylenol) 650 mg PO Q4HR PRN PRN Reason: Mild Pain / Temp above 100 Stop: 05/21/17 23:53 Al Hydrox/Mg Hydrox/Simethicone (Maalox) 30 ml PO Q4HR PRN PRN Reason: GI DISTRESS Stop: 05/21/17 23:53 Amlodipine Besylate (Norvasc) 5 mg PO DAILY [facility] Stop: 05/23/17 08:59 Last Admin: 03/29/17 09:03 Dose: 5 mg Clonidine HCl (Catapres) 0.1 mg PO Q6HR PRN PRN Reason: SBP GREATER THAN 160 Stop: 05/22/17 12:47 Fluticasone Propionate (Flonase) 1 spr NS BID [facility] Stop: 05/27/17 16:59 Last Admin: 03/29/17 09:03 Dose: 1 spr Lamotrigine (Lamictal) 200 mg PO BID [facility] PRN Reason: Protocol Stop: 05/22/17 16:59 Lorazepam (Ativan) 0.5 mg PO Q4HR PRN; Protocol PRN Reason: Anxiety Stop: 04/21/17 23:53 Last Admin: 03/28/17 16:07 Dose: 0.5 mg Magnesium Hydroxide (Milk Of Magnesia) 30 ml PO HS PRN PRN Reason: Constipation Multivitamins/Vitamin C (Theragran) 1 tab PO DAILY [facility] Stop: 05/22/17 08:59 Last Admin: 03/29/17 09:02 Dose: 1 tab Quetiapine Fumarate 100 mg/ (Quetiapine Fumarate 25 mg) 125 mg PO BID [facility] Stop: 05/26/17 08:59 Last Admin: 03/29/17 09:03 Dose: Not Given Tamsulosin HCl (Flomax) 0.4 mg PO DAILY [facility] Stop: 05/28/17 08:59 Last Admin: 03/29/17 09:03 Dose: 0.4 mg Zolpidem Tartrate (Ambien) 5 mg PO HS PRN PRN Reason: Insomnia Stop: 05/21/17 23:53 Last Admin: 03/27/17 20:32 Dose: 5 mg General: alert HEENT: NC/AT, PERRLA Neck: Supple Lungs: CTAB Cardiovascular: RRR, Normal S1, Normal S2, without murmur Abdomen: soft, non-tender, non-distended, positive bowel sound Extremities: clear Neurological: alert - Procedures Procedures: Procedures Procedure Code Date OTHER GROUP THERAPY 94.44 05/24/10 RECREATIONAL THERAPY 93.81 05/24/10 Internal Medicine Assmt/Plan - Assessment Assessment: Current Active Problems Problem Status Onset PATIENT IS UNABLE TO CARE FOR SELF Acute unable to care for self htn bipolar ptsd mrsa nares seasonal allergy - Plan Plan: monitor BP continue bp medications fall precautions cpm Nutritional Asmnt/Malnutr-PDOC - Dietary Evaluation Malnutrition Findings (Please click <Entered> for more info): Nutritional Asmnt/Malnutrition Start: 03/28/17 16: 09 Text: Status: Complete Freq: Document 03/28/17 16:09 IQRA (Rec: 03/28/17 16:20 [email or web address] [email or web address]) Nutritional Asmnt/Malnutrition Patient General Information Nutritional Screening Diagnosis Diagnosis Unable to care for self, HTN, PTSD, bipolar Pertinent Medical Hx/Surgical Hx HTN Subjective Information 71 year old male. Spoke to pt in wheelchair in hallway. Pt was alert and very pleasant. Pt shared with RD information on food for homeless people, appeared to be resourceful in this topic. Pt denied nutritional concerns at this time, stated the food is good, "all is good." Avg PO intake 100% of meals since adm, meeting nutritional needs. Current Diet Order/ Nutrition Support Regular Pertinent Medications MOM, Theragran Pertinent Labs No labs. Nutritional Hx/Data Height 5 ft 9 in Height (Calculated Centimeters) 175.3 Current Weight (lbs) 190 lb Weight (Calculated Kilograms) 86.2 Weight (Calculated Grams) 41833.6 [place] Body Weight 160 Weight Status Overweight GI Symptoms Skin Integrity/Comment: [place] 20. Skin intact. Current %PO Good (75-100%) Estimated Nutritional Goals Calories/Kcals/Kg IBW 160lb/72.7kg Kcals Calculated 1818-2181kcal (25-30kcal/kg) Protein Calculated 73g (1g/kg) Fluid: ml 1818-2181ml (1ml/kcal) Nutritional Problem 1. Problem Problem No nutritional problem at this time. Intervention/Recommendation Comments 1. Continue with current diet order. Avg PO intake is adequate. Expected Outcomes/Goals Expected Outcomes/Goals 1. PO intake conitnue to meet at least 75% of estimated nutritional needs.
[2017-03-30] MEDS: Fluticasone Propionate 0.05mg/Actuation 16gm Nasal Spray NS SCH ×2 (08:42→16:51)
[2017-03-30] MEDS: Multivitamin Tab PO SCH (08:43)
--- NOTE | 2017-03-30 12:50 | Internal Medicine Prog Note ---
Internal Medicine Subjective - Subjective Service Date: 03/30/17 Patient seen and examined:: with staff Patient is:: asleep, verbal, in wheelchair Per staff patient has:: no adverse event Internal Medicine Objective - Results Recent Labs: Laboratory Last Values Urine Source CLEAN C 03/22/17 17:15 Urine Color YELLOW 03/22/17 17:15 Urine Clarity CLEAR (CLEAR) 03/22/17 17:15 Urine pH 6.5 03/22/17 17:15 Ur Specific [place] 1.025 (1.005-1.030) 03/22/17 17:15 Urine Protein 1.0 mg/dL (NEGATIVE) 03/22/17 17:15 Urine Glucose (UA) 100 mg/dL (NEGATIVE) H 03/22/17 17:15 Urine Ketones NEGATIVE mg/dL (NEGATIVE) 03/22/17 17:15 Urine Blood MODERATE (NEGATIVE) H 03/22/17 17:15 Urine Nitrate NEGATIVE (NEGATIVE) 03/22/17 17:15 Urine Bilirubin SMALL (NEGATIVE) H 03/22/17 17:15 Urine Urobilinogen 1.0 E.U./dL (0.2 - 1.0) 03/22/17 17:15 Ur Leukocyte Esterase NEGATIVE (NEGATIVE) 03/22/17 17:15 Urine RBC 5-10 /hpf (0-5) H 03/22/17 17:15 Urine WBC 0-2 /hpf (0-5) 03/22/17 17:15 Ur Epithelial Cells NONE SEEN /lpf (FEW) 03/22/17 17:15 Urine Bacteria NONE SEEN /hpf (NONE SEEN) 03/22/17 17:15 Urine Opiates Screen NEGATIVE (NEGATIVE) 03/22/17 17:15 Urine Methadone Screen NEGATIVE (NEGATIVE) 03/22/17 17:15 Ur Barbiturates Screen NEGATIVE (NEGATIVE) 03/22/17 17:15 Ur Tricyclics Screen NEGATIVE (NEGATIVE) 03/22/17 17:15 Ur Phencyclidine Scrn NEGATIVE (NEGATIVE) 03/22/17 17:15 Amphetamines Screen NEGATIVE (NEGATIVE) 03/22/17 17:15 U Methamphetamines Scrn NEGATIVE (NEGATIVE) 03/22/17 17:15 U Benzodiazepines Scrn NEGATIVE (NEGATIVE) 03/22/17 17:15 U Cocaine Metab Screen NEGATIVE (NEGATIVE) 03/22/17 17:15 U Cannabinoids Screen POSITIVE (NEGATIVE) H 03/22/17 17:15 - Physical Exam Vitals and I&O: Vital Signs Temp 98.5 F 03/30/17 05:40 Pulse 79 03/30/17 08:41 Resp 19 03/30/17 05:40 BP 145/63 03/30/17 08:41 Pulse Ox 99 03/30/17 05:40 Intake & Output 03/29/17 03/30/17 03/30/17 18:59 06:59 18:59 Intake Total 1200 480 Balance 1200 480 Intake: Oral 1200 480 Other: # Voids 4 2 # Bowel Movements 1 0 Active Medications: Current Medications Acetaminophen (Tylenol) 650 mg PO Q4HR PRN PRN Reason: Mild Pain / Temp above 100 Stop: 05/21/17 23:53 Last Admin: 03/30/17 00:53 Dose: 650 mg Al Hydrox/Mg Hydrox/Simethicone (Maalox) 30 ml PO Q4HR PRN PRN Reason: GI DISTRESS Stop: 05/21/17 23:53 Amlodipine Besylate (Norvasc) 5 mg PO DAILY [facility] Stop: 05/23/17 08:59 Last Admin: 03/30/17 08:41 Dose: 5 mg Clonidine HCl (Catapres) 0.1 mg PO Q6HR PRN PRN Reason: SBP GREATER THAN 160 Stop: 05/22/17 12:47 Fluticasone Propionate (Flonase) 1 spr NS BID KEELY Stop: 05/27/17 16:59 Last Admin: 03/30/17 08:42 Dose: 1 spr Lamotrigine (Lamictal) 200 mg PO BID KEELY PRN Reason: Protocol Stop: 05/22/17 16:59 Last Admin: 03/30/17 08:42 Dose: 200 mg Lorazepam (Ativan) 0.5 mg PO Q4HR PRN; Protocol PRN Reason: Anxiety Stop: 04/21/17 23:53 Last Admin: 03/30/17 00:52 Dose: 0.5 mg Magnesium Hydroxide (Milk Of Magnesia) 30 ml PO HS PRN PRN Reason: Constipation Multivitamins/Vitamin C (Theragran) 1 tab PO DAILY KE[facility] Stop: 05/22/17 08:59 Last Admin: 03/30/17 08:43 Dose: 1 tab Quetiapine Fumarate 100 mg/ (Quetiapine Fumarate 25 mg) 125 mg PO BID KEELY Stop: 05/26/17 08:59 Last Admin: 03/30/17 08:41 Dose: 125 mg Tamsulosin HCl (Flomax) 0.4 mg PO DAILY KE[facility] Stop: 05/28/17 08:59 Last Admin: 03/30/17 08:41 Dose: 0.4 mg Zolpidem Tartrate (Ambien) 5 mg PO HS PRN PRN Reason: Insomnia Stop: 05/21/17 23:53 Last Admin: 03/30/17 00:52 Dose: 5 mg General: alert HEENT: NC/AT, PERRLA Neck: Supple Lungs: CTAB Cardiovascular: RRR, Normal S1, Normal S2, without murmur Abdomen: soft, non-tender, non-distended, positive bowel sound Extremities: clear Neurological: alert - Procedures Procedures: Procedures Procedure Code Date OTHER GROUP THERAPY 94.44 05/24/10 RECREATIONAL THERAPY 93.81 05/24/10 Internal Medicine Assmt/Plan - Assessment Assessment: Current Active Problems Problem Status Onset PATIENT IS UNABLE TO CARE FOR SELF Acute unable to care for self htn bipolar ptsd mrsa nares seasonal allergy - Plan Plan: monitor BP continue bp medications fall precautions cpm Nutritional Asmnt/Malnutr-PDOC - Dietary Evaluation Malnutrition Findings (Please click <Entered> for more info): Nutritional Asmnt/Malnutrition Start: 03/28/17 16: 09 Text: Status: Complete Freq: Document 03/28/17 16:09 GSUN (Rec: 03/28/17 16:20 [email or web address]) Nutritional Asmnt/Malnutrition Patient General Information Nutritional Screening Diagnosis Diagnosis Unable to care for self, HTN, PTSD, bipolar Pertinent Medical Hx/Surgical Hx HTN Subjective Information 71 year old male. Spoke to pt in wheelchair in hallway. Pt was alert and very pleasant. Pt shared with RD information on food for homeless people, appeared to be resourceful in this topic. Pt denied nutritional concerns at this time, stated the food is good, "all is good." Avg PO intake 100% of meals since adm, meeting nutritional needs. Current Diet Order/ Nutrition Support Regular Pertinent Medications MOM, Theragran Pertinent Labs No labs. Nutritional Hx/Data Height 5 ft 9 in Height (Calculated Centimeters) 175.3 Current Weight (lbs) 190 lb Weight (Calculated Kilograms) 86.2 Weight (Calculated Grams) 14300.6 [place] Body Weight 160 Weight Status Overweight GI Symptoms Skin Integrity/Comment: [place] 20. Skin intact. Current %PO Good (75-100%) Estimated Nutritional Goals Calories/Kcals/Kg IBW 160lb/72.7kg Kcals Calculated 1818-2181kcal (25-30kcal/kg) Protein Calculated 73g (1g/kg) Fluid: ml 1818-2181ml (1ml/kcal) Nutritional Problem 1. Problem Problem No nutritional problem at this time. Intervention/Recommendation Comments 1. Continue with current diet order. Avg PO intake is adequate. Expected Outcomes/Goals Expected Outcomes/Goals 1. PO intake conitnue to meet at least 75% of estimated nutritional needs.
[2017-03-31] MEDS: Fluticasone Propionate 0.05mg/Actuation 16gm Nasal Spray NS SCH ×2 (09:13→17:48)
[2017-03-31] MEDS: Multivitamin Tab PO SCH (09:13)
--- NOTE | 2017-03-31 12:28 | Internal Medicine Prog Note ---
Internal Medicine Subjective - Subjective Service Date: 03/31/17 Patient is:: asleep, verbal, in wheelchair Per staff patient has:: no adverse event Internal Medicine Objective - Results Recent Labs: Laboratory Last Values Urine Source CLEAN C 03/22/17 17:15 Urine Color YELLOW 03/22/17 17:15 Urine Clarity CLEAR (CLEAR) 03/22/17 17:15 Urine pH 6.5 03/22/17 17:15 Ur Specific [place] 1.025 (1.005-1.030) 03/22/17 17:15 Urine Protein 1.0 mg/dL (NEGATIVE) 03/22/17 17:15 Urine Glucose (UA) 100 mg/dL (NEGATIVE) H 03/22/17 17:15 Urine Ketones NEGATIVE mg/dL (NEGATIVE) 03/22/17 17:15 Urine Blood MODERATE (NEGATIVE) H 03/22/17 17:15 Urine Nitrate NEGATIVE (NEGATIVE) 03/22/17 17:15 Urine Bilirubin SMALL (NEGATIVE) H 03/22/17 17:15 Urine Urobilinogen 1.0 E.U./dL (0.2 - 1.0) 03/22/17 17:15 Ur Leukocyte Esterase NEGATIVE (NEGATIVE) 03/22/17 17:15 Urine RBC 5-10 /hpf (0-5) H 03/22/17 17:15 Urine WBC 0-2 /hpf (0-5) 03/22/17 17:15 Ur Epithelial Cells NONE SEEN /lpf (FEW) 03/22/17 17:15 Urine Bacteria NONE SEEN /hpf (NONE SEEN) 03/22/17 17:15 Urine Opiates Screen NEGATIVE (NEGATIVE) 03/22/17 17:15 Urine Methadone Screen NEGATIVE (NEGATIVE) 03/22/17 17:15 Ur Barbiturates Screen NEGATIVE (NEGATIVE) 03/22/17 17:15 Ur Tricyclics Screen NEGATIVE (NEGATIVE) 03/22/17 17:15 Ur Phencyclidine Scrn NEGATIVE (NEGATIVE) 03/22/17 17:15 Amphetamines Screen NEGATIVE (NEGATIVE) 03/22/17 17:15 U Methamphetamines Scrn NEGATIVE (NEGATIVE) 03/22/17 17:15 U Benzodiazepines Scrn NEGATIVE (NEGATIVE) 03/22/17 17:15 U Cocaine Metab Screen NEGATIVE (NEGATIVE) 03/22/17 17:15 U Cannabinoids Screen POSITIVE (NEGATIVE) H 03/22/17 17:15 - Physical Exam Vitals and I&O: Vital Signs Temp 98.2 F 03/31/17 06:57 Pulse 73 03/31/17 09:12 Resp 18 03/31/17 06:57 BP 139/69 03/31/17 09:12 Pulse Ox 97 03/31/17 06:57 Intake & Output 03/30/17 03/31/17 03/31/17 18:59 06:59 18:59 Other: # Voids 2 Active Medications: Current Medications Acetaminophen (Tylenol) 650 mg PO Q4HR PRN PRN Reason: Mild Pain / Temp above 100 Stop: 05/21/17 23:53 Last Admin: 03/31/17 02:49 Dose: 650 mg Al Hydrox/Mg Hydrox/Simethicone (Maalox) 30 ml PO Q4HR PRN PRN Reason: GI DISTRESS Stop: 05/21/17 23:53 Amlodipine Besylate (Norvasc) 5 mg PO DAILY [facility] Stop: 05/23/17 08:59 Last Admin: 03/31/17 09:12 Dose: 5 mg Clonidine HCl (Catapres) 0.1 mg PO Q6HR PRN PRN Reason: SBP GREATER THAN 160 Stop: 05/22/17 12:47 Fluticasone Propionate (Flonase) 1 spr NS BID [facility] Stop: 05/27/17 16:59 Last Admin: 03/31/17 09:13 Dose: 1 spr Lamotrigine (Lamictal) 200 mg PO BID KEELY PRN Reason: Protocol Stop: 05/22/17 16:59 Last Admin: 03/31/17 09:11 Dose: 200 mg Lorazepam (Ativan) 0.5 mg PO Q4HR PRN; Protocol PRN Reason: Anxiety Stop: 04/21/17 23:53 Last Admin: 03/31/17 02:49 Dose: 0.5 mg Magnesium Hydroxide (Milk Of Magnesia) 30 ml PO HS PRN PRN Reason: Constipation Multivitamins/Vitamin C (Theragran) 1 tab PO DAILY [facility] Stop: 05/22/17 08:59 Last Admin: 03/31/17 09:13 Dose: 1 tab Quetiapine Fumarate (Seroquel) 150 mg PO BID [facility] Stop: 05/26/17 08:59 Last Admin: 03/31/17 09:10 Dose: 150 mg Tamsulosin HCl (Flomax) 0.4 mg PO DAILY [facility] Stop: 05/28/17 08:59 Last Admin: 03/31/17 09:13 Dose: 0.4 mg Trazodone HCl (Desyrel) 100 mg PO HS EKELY PRN Reason: Protocol Stop: 05/30/17 20:59 Zolpidem Tartrate (Ambien) 10 mg PO HS PRN PRN Reason: Insomnia Stop: 05/21/17 23:53 General: alert HEENT: NC/AT, PERRLA Neck: Supple Lungs: CTAB Cardiovascular: RRR, Normal S1, Normal S2, without murmur Abdomen: soft, non-tender, non-distended, positive bowel sound Extremities: clear Neurological: alert - Procedures Procedures: Procedures Procedure Code Date OTHER GROUP THERAPY 94.44 05/24/10 RECREATIONAL THERAPY 93.81 05/24/10 Internal Medicine Assmt/Plan - Assessment Assessment: Current Active Problems Problem Status Onset PATIENT IS UNABLE TO CARE FOR SELF Acute unable to care for self htn bipolar ptsd mrsa nares seasonal allergy - Plan Plan: monitor BP continue bp medications fall precautions cpm Nutritional Asmnt/Malnutr-PDOC - Dietary Evaluation Malnutrition Findings (Please click <Entered> for more info): Nutritional Asmnt/Malnutrition Start: 03/28/17 16: 09 Text: Status: Complete Freq: Document 03/28/17 16:09 GSUN (Rec: 03/28/17 16:20 [email or web address]) Nutritional Asmnt/Malnutrition Patient General Information Nutritional Screening Diagnosis Diagnosis Unable to care for self, HTN, PTSD, bipolar Pertinent Medical Hx/Surgical Hx HTN Subjective Information 71 year old male. Spoke to pt in wheelchair in hallway. Pt was alert and very pleasant. Pt shared with RD information on food for homeless people, appeared to be resourceful in this topic. Pt denied nutritional concerns at this time, stated the food is good, "all is good." Avg PO intake 100% of meals since adm, meeting nutritional needs. Current Diet Order/ Nutrition Support Regular Pertinent Medications MOM, Theragran Pertinent Labs No labs. Nutritional Hx/Data Height 5 ft 9 in Height (Calculated Centimeters) 175.3 Current Weight (lbs) 190 lb Weight (Calculated Kilograms) 86.2 Weight (Calculated Grams) 63662.6 [place] Body Weight 160 Weight Status Overweight GI Symptoms Skin Integrity/Comment: Eloy 20. Skin intact. Current %PO Good (75-100%) Estimated Nutritional Goals Calories/Kcals/Kg IBW 160lb/72.7kg Kcals Calculated 1818-2181kcal (25-30kcal/kg) Protein Calculated 73g (1g/kg) Fluid: ml 1818-2181ml (1ml/kcal) Nutritional Problem 1. Problem Problem No nutritional problem at this time. Intervention/Recommendation Comments 1. Continue with current diet order. Avg PO intake is adequate. Expected Outcomes/Goals Expected Outcomes/Goals 1. PO intake conitnue to meet at least 75% of estimated nutritional needs.
[2017-04-01] MEDS: Multivitamin Tab PO SCH (08:55)
[2017-04-01] MEDS: Fluticasone Propionate 0.05mg/Actuation 16gm Nasal Spray NS SCH ×2 (08:56→16:40)
--- NOTE | 2017-04-01 15:22 | Internal Medicine Prog Note ---
Internal Medicine Subjective - Subjective Service Date: 04/01/17 Patient is:: asleep, verbal, in wheelchair Per staff patient has:: no adverse event Internal Medicine Objective - Results Recent Labs: Laboratory Last Values Urine Source CLEAN C 03/22/17 17:15 Urine Color YELLOW 03/22/17 17:15 Urine Clarity CLEAR (CLEAR) 03/22/17 17:15 Urine pH 6.5 03/22/17 17:15 Ur Specific [place] 1.025 (1.005-1.030) 03/22/17 17:15 Urine Protein 1.0 mg/dL (NEGATIVE) 03/22/17 17:15 Urine Glucose (UA) 100 mg/dL (NEGATIVE) H 03/22/17 17:15 Urine Ketones NEGATIVE mg/dL (NEGATIVE) 03/22/17 17:15 Urine Blood MODERATE (NEGATIVE) H 03/22/17 17:15 Urine Nitrate NEGATIVE (NEGATIVE) 03/22/17 17:15 Urine Bilirubin SMALL (NEGATIVE) H 03/22/17 17:15 Urine Urobilinogen 1.0 E.U./dL (0.2 - 1.0) 03/22/17 17:15 Ur Leukocyte Esterase NEGATIVE (NEGATIVE) 03/22/17 17:15 Urine RBC 5-10 /hpf (0-5) H 03/22/17 17:15 Urine WBC 0-2 /hpf (0-5) 03/22/17 17:15 Ur Epithelial Cells NONE SEEN /lpf (FEW) 03/22/17 17:15 Urine Bacteria NONE SEEN /hpf (NONE SEEN) 03/22/17 17:15 Urine Opiates Screen NEGATIVE (NEGATIVE) 03/22/17 17:15 Urine Methadone Screen NEGATIVE (NEGATIVE) 03/22/17 17:15 Ur Barbiturates Screen NEGATIVE (NEGATIVE) 03/22/17 17:15 Ur Tricyclics Screen NEGATIVE (NEGATIVE) 03/22/17 17:15 Ur Phencyclidine Scrn NEGATIVE (NEGATIVE) 03/22/17 17:15 Amphetamines Screen NEGATIVE (NEGATIVE) 03/22/17 17:15 U Methamphetamines Scrn NEGATIVE (NEGATIVE) 03/22/17 17:15 U Benzodiazepines Scrn NEGATIVE (NEGATIVE) 03/22/17 17:15 U Cocaine Metab Screen NEGATIVE (NEGATIVE) 03/22/17 17:15 U Cannabinoids Screen POSITIVE (NEGATIVE) H 03/22/17 17:15 - Physical Exam Vitals and I&O: Vital Signs Temp 97.9 F 04/01/17 07:04 Pulse 75 04/01/17 08:56 Resp 19 04/01/17 07:04 BP 128/58 04/01/17 08:56 Pulse Ox 98 04/01/17 07:04 Intake & Output 03/31/17 04/01/17 04/01/17 18:59 06:59 18:59 Other: # Voids 2 Active Medications: Current Medications Acetaminophen (Tylenol) 650 mg PO Q4HR PRN PRN Reason: Mild Pain / Temp above 100 Stop: 05/21/17 23:53 Last Admin: 03/31/17 21:16 Dose: 650 mg Al Hydrox/Mg Hydrox/Simethicone (Maalox) 30 ml PO Q4HR PRN PRN Reason: GI DISTRESS Stop: 05/21/17 23:53 Amlodipine Besylate (Norvasc) 5 mg PO DAILY [facility] Stop: 05/23/17 08:59 Last Admin: 04/01/17 08:56 Dose: 5 mg Clonidine HCl (Catapres) 0.1 mg PO Q6HR PRN PRN Reason: SBP GREATER THAN 160 Stop: 05/22/17 12:47 Fluticasone Propionate (Flonase) 1 spr NS BID KEELY Stop: 05/27/17 16:59 Last Admin: 04/01/17 08:56 Dose: 1 spr Lamotrigine (Lamictal) 200 mg PO BID KEELY PRN Reason: Protocol Stop: 05/22/17 16:59 Last Admin: 04/01/17 08:55 Dose: 200 mg Lorazepam (Ativan) 0.5 mg PO Q4HR PRN; Protocol PRN Reason: Anxiety Stop: 04/21/17 23:53 Last Admin: 03/31/17 02:49 Dose: 0.5 mg Magnesium Hydroxide (Milk Of Magnesia) 30 ml PO HS PRN PRN Reason: Constipation Multivitamins/Vitamin C (Theragran) 1 tab PO DAILY [facility] Stop: 05/22/17 08:59 Last Admin: 04/01/17 08:55 Dose: 1 tab Quetiapine Fumarate (Seroquel) 200 mg PO DAILY [facility] Stop: 05/31/17 08:59 Last Admin: 04/01/17 08:54 Dose: 200 mg Tamsulosin HCl (Flomax) 0.4 mg PO DAILY [facility] Stop: 05/28/17 08:59 Last Admin: 04/01/17 08:55 Dose: 0.4 mg Zolpidem Tartrate (Ambien) 10 mg PO HS PRN PRN Reason: Insomnia Stop: 05/21/17 23:53 Last Admin: 03/31/17 21:16 Dose: 10 mg General: alert HEENT: NC/AT, PERRLA Neck: Supple Lungs: CTAB Cardiovascular: RRR, Normal S1, Normal S2, without murmur Abdomen: soft, non-tender, non-distended, positive bowel sound Extremities: clear Neurological: alert - Procedures Procedures: Procedures Procedure Code Date OTHER GROUP THERAPY 94.44 05/24/10 RECREATIONAL THERAPY 93.81 05/24/10 Internal Medicine Assmt/Plan - Assessment Assessment: Current Active Problems Problem Status Onset PATIENT IS UNABLE TO CARE FOR SELF Acute unable to care for self htn bipolar ptsd mrsa nares seasonal allergy - Plan Plan: monitor BP continue bp medications fall precautions cpm Nutritional Asmnt/Malnutr-PDOC - Dietary Evaluation Malnutrition Findings (Please click <Entered> for more info): Nutritional Asmnt/Malnutrition Start: 03/28/17 16: 09 Text: Status: Complete Freq: Document 03/28/17 16:09 IQRA (Rec: 03/28/17 16:20 [email or web address]) Nutritional Asmnt/Malnutrition Patient General Information Nutritional Screening Diagnosis Diagnosis Unable to care for self, HTN, PTSD, bipolar Pertinent Medical Hx/Surgical Hx HTN Subjective Information 71 year old male. Spoke to pt in wheelchair in hallway. Pt was alert and very pleasant. Pt shared with RD information on food for homeless people, appeared to be resourceful in this topic. Pt denied nutritional concerns at this time, stated the food is good, "all is good." Avg PO intake 100% of meals since adm, meeting nutritional needs. Current Diet Order/ Nutrition Support Regular Pertinent Medications MOM, Theragran Pertinent Labs No labs. Nutritional Hx/Data Height 5 ft 9 in Height (Calculated Centimeters) 175.3 Current Weight (lbs) 190 lb Weight (Calculated Kilograms) 86.2 Weight (Calculated Grams) 44423.6 [place] Body Weight 160 Weight Status Overweight GI Symptoms Skin Integrity/Comment: El[place] 20. Skin intact. Current %PO Good (75-100%) Estimated Nutritional Goals Calories/Kcals/Kg IBW 160lb/72.7kg Kcals Calculated 1818-2181kcal (25-30kcal/kg) Protein Calculated 73g (1g/kg) Fluid: ml 1818-2181ml (1ml/kcal) Nutritional Problem 1. Problem Problem No nutritional problem at this time. Intervention/Recommendation Comments 1. Continue with current diet order. Avg PO intake is adequate. Expected Outcomes/Goals Expected Outcomes/Goals 1. PO intake conitnue to meet at least 75% of estimated nutritional needs.
--- NOTE | 2017-04-01 21:27 | Progress Notes ---
DATE: 04/01/2017 SUBJECTIVE: Chart reviewed and the patient interviewed. Also discussed the patient's condition with the staff and reviewed records and labs. The patient continued to be argumentative and he continued to be hypertalkative. The patient also is still suspicious and is still rambling. The patient also is paranoid and said that he is afraid to take a shower for no apparent reason. The patient also still has disorganized thoughts and rambling and jumping from one subject to another. The patient also continued to be argumentative in regard to his placement and he insisted that he has too many places and he still has grandiose delusions. ASSESSMENT: The patient is still manicky and is still in angry and irritable mood. TREATMENT PLAN: We will continue to monitor his behavior and his condition closely. Also, continue to work on his agitation and his irritability, as well as placement issue. JOB# [id number]
[2017-04-02] MEDS: Multivitamin Tab PO SCH (08:32)
[2017-04-02] MEDS: Fluticasone Propionate 0.05mg/Actuation 16gm Nasal Spray NS SCH ×2 (08:37→16:52)
--- NOTE | 2017-04-02 14:58 | Internal Medicine Prog Note ---
Internal Medicine Subjective - Subjective Patient seen and examined:: with staff, chart reviewed Patient is:: asleep, verbal, in wheelchair Per staff patient has:: no adverse event Internal Medicine Objective - Results Recent Labs: Laboratory Last Values Urine Source CLEAN C 03/22/17 17:15 Urine Color YELLOW 03/22/17 17:15 Urine Clarity CLEAR (CLEAR) 03/22/17 17:15 Urine pH 6.5 03/22/17 17:15 Ur Specific [place] 1.025 (1.005-1.030) 03/22/17 17:15 Urine Protein 1.0 mg/dL (NEGATIVE) 03/22/17 17:15 Urine Glucose (UA) 100 mg/dL (NEGATIVE) H 03/22/17 17:15 Urine Ketones NEGATIVE mg/dL (NEGATIVE) 03/22/17 17:15 Urine Blood MODERATE (NEGATIVE) H 03/22/17 17:15 Urine Nitrate NEGATIVE (NEGATIVE) 03/22/17 17:15 Urine Bilirubin SMALL (NEGATIVE) H 03/22/17 17:15 Urine Urobilinogen 1.0 E.U./dL (0.2 - 1.0) 03/22/17 17:15 Ur Leukocyte Esterase NEGATIVE (NEGATIVE) 03/22/17 17:15 Urine RBC 5-10 /hpf (0-5) H 03/22/17 17:15 Urine WBC 0-2 /hpf (0-5) 03/22/17 17:15 Ur Epithelial Cells NONE SEEN /lpf (FEW) 03/22/17 17:15 Urine Bacteria NONE SEEN /hpf (NONE SEEN) 03/22/17 17:15 Urine Opiates Screen NEGATIVE (NEGATIVE) 03/22/17 17:15 Urine Methadone Screen NEGATIVE (NEGATIVE) 03/22/17 17:15 Ur Barbiturates Screen NEGATIVE (NEGATIVE) 03/22/17 17:15 Ur Tricyclics Screen NEGATIVE (NEGATIVE) 03/22/17 17:15 Ur Phencyclidine Scrn NEGATIVE (NEGATIVE) 03/22/17 17:15 Amphetamines Screen NEGATIVE (NEGATIVE) 03/22/17 17:15 U Methamphetamines Scrn NEGATIVE (NEGATIVE) 03/22/17 17:15 U Benzodiazepines Scrn NEGATIVE (NEGATIVE) 03/22/17 17:15 U Cocaine Metab Screen NEGATIVE (NEGATIVE) 03/22/17 17:15 U Cannabinoids Screen POSITIVE (NEGATIVE) H 03/22/17 17:15 - Physical Exam Vitals and I&O: Vital Signs Temp 97.6 F 04/02/17 06:57 Pulse 76 04/02/17 08:32 Resp 18 04/02/17 06:57 BP 140/70 04/02/17 08:32 Pulse Ox 97 04/02/17 06:57 Intake & Output 04/01/17 04/02/17 04/02/17 18:59 06:59 18:59 Intake Total 1200 Balance 1200 Intake: Oral 1200 Other: # Voids 2 1 # Bowel Movements 1 Active Medications: Current Medications Acetaminophen (Tylenol) 650 mg PO Q4HR PRN PRN Reason: Mild Pain / Temp above 100 Stop: 05/21/17 23:53 Last Admin: 04/02/17 02:17 Dose: 650 mg Al Hydrox/Mg Hydrox/Simethicone (Maalox) 30 ml PO Q4HR PRN PRN Reason: GI DISTRESS Stop: 05/21/17 23:53 Amlodipine Besylate (Norvasc) 5 mg PO DAILY [facility] Stop: 05/23/17 08:59 Last Admin: 04/02/17 08:32 Dose: 5 mg Clonidine HCl (Catapres) 0.1 mg PO Q6HR PRN PRN Reason: SBP GREATER THAN 160 Stop: 05/22/17 12:47 Fluticasone Propionate (Flonase) 1 spr NS BID [facility] Stop: 05/27/17 16:59 Last Admin: 04/02/17 08:37 Dose: 1 spr Lamotrigine (Lamictal) 200 mg PO BID [facility] PRN Reason: Protocol Stop: 05/22/17 16:59 Last Admin: 04/02/17 08:33 Dose: 200 mg Lorazepam (Ativan) 0.5 mg PO Q4HR PRN; Protocol PRN Reason: Anxiety Stop: 04/21/17 23:53 Last Admin: 04/02/17 02:17 Dose: 0.5 mg Magnesium Hydroxide (Milk Of Magnesia) 30 ml PO HS PRN PRN Reason: Constipation Multivitamins/Vitamin C (Theragran) 1 tab PO DAILY [facility] Stop: 05/22/17 08:59 Last Admin: 04/02/17 08:32 Dose: 1 tab Quetiapine Fumarate (Seroquel) 200 mg PO DAILY [facility] Stop: 05/31/17 08:59 Last Admin: 04/02/17 08:33 Dose: 200 mg Tamsulosin HCl (Flomax) 0.4 mg PO DAILY [facility] Stop: 05/28/17 08:59 Last Admin: 04/02/17 08:32 Dose: 0.4 mg Zolpidem Tartrate (Ambien) 10 mg PO HS PRN PRN Reason: Insomnia Stop: 05/21/17 23:53 Last Admin: 04/01/17 23:16 Dose: 10 mg General: alert HEENT: NC/AT, PERRLA Neck: Supple Lungs: CTAB Cardiovascular: RRR, Normal S1, Normal S2, without murmur Abdomen: soft, non-tender, non-distended, positive bowel sound Extremities: clear Neurological: alert - Procedures Procedures: Procedures Procedure Code Date OTHER GROUP THERAPY 94.44 05/24/10 RECREATIONAL THERAPY 93.81 05/24/10 Internal Medicine Assmt/Plan - Assessment Assessment: unable to care for self htn bipolar ptsd mrsa nares seasonal allergy - Plan Plan: - Plan Plan: monitor BP continue bp medications fall precautions cpm Nutritional Asmnt/Malnutr-PDOC - Dietary Evaluation Malnutrition Findings (Please click <Entered> for more info): Nutritional Asmnt/Malnutrition Start: 03/28/17 16: 09 Text: Status: Complete Freq: Document 03/28/17 16:09 GSUN (Rec: 03/28/17 16:20 GSANNE MARIE [email or web address]) Nutritional Asmnt/Malnutrition Patient General Information Nutritional Screening Diagnosis Diagnosis Unable to care for self, HTN, PTSD, bipolar Pertinent Medical Hx/Surgical Hx HTN Subjective Information 71 year old male. Spoke to pt in wheelchair in hallway. Pt was alert and very pleasant. Pt shared with RD information on food for homeless people, appeared to be resourceful in this topic. Pt denied nutritional concerns at this time, stated the food is good, "all is good." Avg PO intake 100% of meals since adm, meeting nutritional needs. Current Diet Order/ Nutrition Support Regular Pertinent Medications MOM, Theragran Pertinent Labs No labs. Nutritional Hx/Data Height 1.75 m Height (Calculated Centimeters) 175.3 Current Weight (lbs) 86.183 kg Weight (Calculated Kilograms) 86.2 Weight (Calculated Grams) 16312.6 [place] Body Weight 160 Weight Status Overweight GI Symptoms Skin Integrity/Comment: Eloy 20. Skin intact. Current %PO Good (75-100%) Estimated Nutritional Goals Calories/Kcals/Kg IBW 160lb/72.7kg Kcals Calculated 1818-2181kcal (25-30kcal/kg) Protein Calculated 73g (1g/kg) Fluid: ml 1818-2181ml (1ml/kcal) Nutritional Problem 1. Problem Problem No nutritional problem at this time. Intervention/Recommendation Comments 1. Continue with current diet order. Avg PO intake is adequate. Expected Outcomes/Goals Expected Outcomes/Goals 1. PO intake conitnue to meet at least 75% of estimated nutritional needs.
--- NOTE | 2017-04-02 20:00 | Progress Notes ---
DATE: 04/02/2017 SUBJECTIVE: Chart reviewed and the patient interviewed. Also discussed the patient's condition with the staff and reviewed records and labs. The patient continues to be argumentative and he is still in angry and in irritable mood. The patient also is still suspicious and is still hyper-talkative. The patient also is still unrealistic and continued to talk about places he owns and that he can go to any of those places easily. The patient also is still having difficulty with her actions and gets angry easily. The patient also is still disheveled and is still refusing to take a shower and he is still demanding. 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 TREATMENT PLAN: We will continue monitoring his behavior and his condition closely. Also, continue to work on his irritability and agitation and continue to follow up. JOB# [id number]
[2017-04-03] MEDS: Multivitamin Tab PO SCH (08:22)
[2017-04-03] MEDS: Fluticasone Propionate 0.05mg/Actuation 16gm Nasal Spray NS SCH ×2 (08:22→16:46)
--- NOTE | 2017-04-03 11:23 | Progress Notes ---
DATE: 04/03/2017 SUBJECTIVE: Chart reviewed and the patient interviewed. Also discussed the patient's condition with the staff and reviewed records and labs. The patient continued to be extremely agitated and in irritable mood. The patient also is still suspicious and paranoid and he is still resisting care and the patient refused to go to take a shower or bathe. The patient said "I am scrubbing myself." ____ and response to me, trying to ____ to go to take a shower. Also, is still suspicious and paranoid and angry. Otherwise, the patient is compliant with taking medications. The patient also earlier tried to have an interaction with the other patient and almost get into a fight with one of his peers. ASSESSMENT: The patient is still psychotic and is still considered to be gravely disabled, unable to come up with a safe plan for self-care. TREATMENT PLAN: Continue monitoring his behavior and his condition closely. Also, continue working on adjusting psychotropic medications as well as placement issue and discharge plans. JOB# [id number]
--- NOTE | 2017-04-03 15:53 | Internal Medicine Prog Note ---
Internal Medicine Subjective - Subjective Patient seen and examined:: with staff, chart reviewed Patient is:: asleep, verbal, in wheelchair Per staff patient has:: no adverse event Internal Medicine Objective - Results Recent Labs: Laboratory Last Values Urine Source CLEAN C 03/22/17 17:15 Urine Color YELLOW 03/22/17 17:15 Urine Clarity CLEAR (CLEAR) 03/22/17 17:15 Urine pH 6.5 03/22/17 17:15 Ur Specific [place] 1.025 (1.005-1.030) 03/22/17 17:15 Urine Protein 1.0 mg/dL (NEGATIVE) 03/22/17 17:15 Urine Glucose (UA) 100 mg/dL (NEGATIVE) H 03/22/17 17:15 Urine Ketones NEGATIVE mg/dL (NEGATIVE) 03/22/17 17:15 Urine Blood MODERATE (NEGATIVE) H 03/22/17 17:15 Urine Nitrate NEGATIVE (NEGATIVE) 03/22/17 17:15 Urine Bilirubin SMALL (NEGATIVE) H 03/22/17 17:15 Urine Urobilinogen 1.0 E.U./dL (0.2 - 1.0) 03/22/17 17:15 Ur Leukocyte Esterase NEGATIVE (NEGATIVE) 03/22/17 17:15 Urine RBC 5-10 /hpf (0-5) H 03/22/17 17:15 Urine WBC 0-2 /hpf (0-5) 03/22/17 17:15 Ur Epithelial Cells NONE SEEN /lpf (FEW) 03/22/17 17:15 Urine Bacteria NONE SEEN /hpf (NONE SEEN) 03/22/17 17:15 Urine Opiates Screen NEGATIVE (NEGATIVE) 03/22/17 17:15 Urine Methadone Screen NEGATIVE (NEGATIVE) 03/22/17 17:15 Ur Barbiturates Screen NEGATIVE (NEGATIVE) 03/22/17 17:15 Ur Tricyclics Screen NEGATIVE (NEGATIVE) 03/22/17 17:15 Ur Phencyclidine Scrn NEGATIVE (NEGATIVE) 03/22/17 17:15 Amphetamines Screen NEGATIVE (NEGATIVE) 03/22/17 17:15 U Methamphetamines Scrn NEGATIVE (NEGATIVE) 03/22/17 17:15 U Benzodiazepines Scrn NEGATIVE (NEGATIVE) 03/22/17 17:15 U Cocaine Metab Screen NEGATIVE (NEGATIVE) 03/22/17 17:15 U Cannabinoids Screen POSITIVE (NEGATIVE) H 03/22/17 17:15 - Physical Exam Vitals and I&O: Vital Signs Temp 97.2 F 04/03/17 06:45 Pulse 77 04/03/17 10:17 Resp 20 04/03/17 10:17 BP 139/71 04/03/17 08:22 Pulse Ox 98 04/03/17 06:45 Intake & Output 04/02/17 04/03/17 04/03/17 18:59 06:59 18:59 Other: # Voids 3 # Bowel Movements 0 Stool Characteristics Soft Formed Active Medications: Current Medications Acetaminophen (Tylenol) 650 mg PO Q4HR PRN PRN Reason: Mild Pain / Temp above 100 Stop: 05/21/17 23:53 Last Admin: 04/02/17 02:17 Dose: 650 mg Al Hydrox/Mg Hydrox/Simethicone (Maalox) 30 ml PO Q4HR PRN PRN Reason: GI DISTRESS Stop: 05/21/17 23:53 Amlodipine Besylate (Norvasc) 5 mg PO DAILY [facility] Stop: 05/23/17 08:59 Last Admin: 04/03/17 08:22 Dose: 5 mg Clonidine HCl (Catapres) 0.1 mg PO Q6HR PRN PRN Reason: SBP GREATER THAN 160 Stop: 05/22/17 12:47 Fluticasone Propionate (Flonase) 1 spr NS BID [facility] Stop: 05/27/17 16:59 Last Admin: 04/03/17 08:22 Dose: 1 spr Lamotrigine (Lamictal) 200 mg PO BID [facility] PRN Reason: Protocol Stop: 05/22/17 16:59 Last Admin: 04/03/17 08:21 Dose: 200 mg Lorazepam (Ativan) 0.5 mg PO Q4HR PRN; Protocol PRN Reason: Anxiety Stop: 04/21/17 23:53 Last Admin: 04/02/17 02:17 Dose: 0.5 mg Magnesium Hydroxide (Milk Of Magnesia) 30 ml PO HS PRN PRN Reason: Constipation Multivitamins/Vitamin C (Theragran) 1 tab PO DAILY [facility] Stop: 05/22/17 08:59 Last Admin: 04/03/17 08:22 Dose: 1 tab Quetiapine Fumarate (Seroquel) 200 mg PO DAILY [facility] Stop: 05/31/17 08:59 Last Admin: 04/03/17 08:22 Dose: 200 mg Tamsulosin HCl (Flomax) 0.4 mg PO DAILY [facility] Stop: 05/28/17 08:59 Last Admin: 04/03/17 08:22 Dose: 0.4 mg Zolpidem Tartrate (Ambien) 10 mg PO HS PRN PRN Reason: Insomnia Stop: 05/21/17 23:53 Last Admin: 04/02/17 21:06 Dose: 10 mg General: alert HEENT: NC/AT, PERRLA Neck: Supple Lungs: CTAB Cardiovascular: RRR, Normal S1, Normal S2, without murmur Abdomen: soft, non-tender, non-distended, positive bowel sound Extremities: clear Neurological: alert - Procedures Procedures: Procedures Procedure Code Date OTHER GROUP THERAPY 94.44 05/24/10 RECREATIONAL THERAPY 93.81 05/24/10 Internal Medicine Assmt/Plan - Assessment Assessment: unable to care for self htn bipolar ptsd mrsa nares seasonal allergy - Plan Plan: - Plan Plan: monitor BP continue bp medications fall precautions cpm Nutritional Asmnt/Malnutr-PDOC - Dietary Evaluation Malnutrition Findings (Please click <Entered> for more info): Nutritional Asmnt/Malnutrition Start: 03/28/17 16: 09 Text: Status: Complete Freq: Document 03/28/17 16:09 GSANNE MARIE (Rec: 03/28/17 16:20 [email or web address]) Nutritional Asmnt/Malnutrition Patient General Information Nutritional Screening Diagnosis Diagnosis Unable to care for self, HTN, PTSD, bipolar Pertinent Medical Hx/Surgical Hx HTN Subjective Information 71 year old male. Spoke to pt in wheelchair in hallway. Pt was alert and very pleasant. Pt shared with RD information on food for homeless people, appeared to be resourceful in this topic. Pt denied nutritional concerns at this time, stated the food is good, "all is good." Avg PO intake 100% of meals since adm, meeting nutritional needs. Current Diet Order/ Nutrition Support Regular Pertinent Medications MOM, Theragran Pertinent Labs No labs. Nutritional Hx/Data Height 1.75 m Height (Calculated Centimeters) 175.3 Current Weight (lbs) 86.183 kg Weight (Calculated Kilograms) 86.2 Weight (Calculated Grams) 04483.6 [place] Body Weight 160 Weight Status Overweight GI Symptoms Skin Integrity/Comment: Eloy 20. Skin intact. Current %PO Good (75-100%) Estimated Nutritional Goals Calories/Kcals/Kg IBW 160lb/72.7kg Kcals Calculated 1818-2181kcal (25-30kcal/kg) Protein Calculated 73g (1g/kg) Fluid: ml 1818-2181ml (1ml/kcal) Nutritional Problem 1. Problem Problem No nutritional problem at this time. Intervention/Recommendation Comments 1. Continue with current diet order. Avg PO intake is adequate. Expected Outcomes/Goals Expected Outcomes/Goals 1. PO intake conitnue to meet at least 75% of estimated nutritional needs.
[2017-04-04] MEDS: Multivitamin Tab PO SCH (08:18)
[2017-04-04] MEDS: Fluticasone Propionate 0.05mg/Actuation 16gm Nasal Spray NS SCH ×2 (08:21→16:24)
--- NOTE | 2017-04-04 11:25 | Progress Notes ---
DATE: 04/04/[address] Dumont. SUBJECTIVE: Case was discussed with staff of the patient, reviewed records. This is a 71-year-old male who was admitted on 03/22/2017. The staff is working on placement for this patient. He continues to have episodes of being argumentative, irritable. He is on Lamictal 200 mg twice a day, multivitamin, Seroquel 200 mg daily with no side effects, no sedation, no nausea, no extrapyramidal symptoms. We will continue to work with the patient in group therapy, milieu therapy, adjust medication as needed. JOB# [id number]
--- NOTE | 2017-04-04 12:51 | Internal Medicine Prog Note ---
Internal Medicine Subjective - Subjective Service Date: 04/04/17 Patient is:: asleep, verbal, in wheelchair Per staff patient has:: no adverse event Internal Medicine Objective - Results Recent Labs: Laboratory Last Values Urine Source CLEAN C 03/22/17 17:15 Urine Color YELLOW 03/22/17 17:15 Urine Clarity CLEAR (CLEAR) 03/22/17 17:15 Urine pH 6.5 03/22/17 17:15 Ur Specific [place] 1.025 (1.005-1.030) 03/22/17 17:15 Urine Protein 1.0 mg/dL (NEGATIVE) 03/22/17 17:15 Urine Glucose (UA) 100 mg/dL (NEGATIVE) H 03/22/17 17:15 Urine Ketones NEGATIVE mg/dL (NEGATIVE) 03/22/17 17:15 Urine Blood MODERATE (NEGATIVE) H 03/22/17 17:15 Urine Nitrate NEGATIVE (NEGATIVE) 03/22/17 17:15 Urine Bilirubin SMALL (NEGATIVE) H 03/22/17 17:15 Urine Urobilinogen 1.0 E.U./dL (0.2 - 1.0) 03/22/17 17:15 Ur Leukocyte Esterase NEGATIVE (NEGATIVE) 03/22/17 17:15 Urine RBC 5-10 /hpf (0-5) H 03/22/17 17:15 Urine WBC 0-2 /hpf (0-5) 03/22/17 17:15 Ur Epithelial Cells NONE SEEN /lpf (FEW) 03/22/17 17:15 Urine Bacteria NONE SEEN /hpf (NONE SEEN) 03/22/17 17:15 Urine Opiates Screen NEGATIVE (NEGATIVE) 03/22/17 17:15 Urine Methadone Screen NEGATIVE (NEGATIVE) 03/22/17 17:15 Ur Barbiturates Screen NEGATIVE (NEGATIVE) 03/22/17 17:15 Ur Tricyclics Screen NEGATIVE (NEGATIVE) 03/22/17 17:15 Ur Phencyclidine Scrn NEGATIVE (NEGATIVE) 03/22/17 17:15 Amphetamines Screen NEGATIVE (NEGATIVE) 03/22/17 17:15 U Methamphetamines Scrn NEGATIVE (NEGATIVE) 03/22/17 17:15 U Benzodiazepines Scrn NEGATIVE (NEGATIVE) 03/22/17 17:15 U Cocaine Metab Screen NEGATIVE (NEGATIVE) 03/22/17 17:15 U Cannabinoids Screen POSITIVE (NEGATIVE) H 03/22/17 17:15 - Physical Exam Vitals and I&O: Vital Signs Temp 98.5 F 04/04/17 05:26 Pulse 78 04/04/17 08:19 Resp 18 04/04/17 05:26 BP 160/76 04/04/17 08:19 Pulse Ox 98 04/04/17 05:26 Intake & Output 04/03/17 04/04/17 04/04/17 18:59 06:59 18:59 Intake Total 1200 Balance 1200 Intake: Oral 1200 Other: # Voids 5 # Bowel Movements 1 Stool Characteristics Soft Formed Active Medications: Current Medications Acetaminophen (Tylenol) 650 mg PO Q4HR PRN PRN Reason: Mild Pain / Temp above 100 Stop: 05/21/17 23:53 Last Admin: 04/04/17 01:00 Dose: 650 mg Al Hydrox/Mg Hydrox/Simethicone (Maalox) 30 ml PO Q4HR PRN PRN Reason: GI DISTRESS Stop: 05/21/17 23:53 Amlodipine Besylate (Norvasc) 5 mg PO DAILY [facility] Stop: 05/23/17 08:59 Last Admin: 04/04/17 08:19 Dose: 5 mg Clonidine HCl (Catapres) 0.1 mg PO Q6HR PRN PRN Reason: SBP GREATER THAN 160 Stop: 05/22/17 12:47 Fluticasone Propionate (Flonase) 1 spr NS BID [facility] Stop: 05/27/17 16:59 Last Admin: 04/04/17 08:21 Dose: 1 spr Lamotrigine (Lamictal) 200 mg PO BID [facility] PRN Reason: Protocol Stop: 05/22/17 16:59 Last Admin: 04/04/17 08:17 Dose: 200 mg Lorazepam (Ativan) 0.5 mg PO Q4HR PRN; Protocol PRN Reason: Anxiety Stop: 04/21/17 23:53 Last Admin: 04/04/17 01:00 Dose: 0.5 mg Magnesium Hydroxide (Milk Of Magnesia) 30 ml PO HS PRN PRN Reason: Constipation Multivitamins/Vitamin C (Theragran) 1 tab PO DAILY [facility] Stop: 05/22/17 08:59 Last Admin: 04/04/17 08:18 Dose: 1 tab Quetiapine Fumarate (Seroquel) 200 mg PO DAILY [facility] Stop: 05/31/17 08:59 Last Admin: 04/04/17 08:19 Dose: 200 mg Tamsulosin HCl (Flomax) 0.4 mg PO DAILY [facility] Stop: 05/28/17 08:59 Last Admin: 04/04/17 08:17 Dose: 0.4 mg Zolpidem Tartrate (Ambien) 10 mg PO HS PRN PRN Reason: Insomnia Stop: 05/21/17 23:53 Last Admin: 04/03/17 21:21 Dose: 10 mg General: alert HEENT: NC/AT, PERRLA Neck: Supple Lungs: CTAB Cardiovascular: RRR, Normal S1, Normal S2, without murmur Abdomen: soft, non-tender, non-distended, positive bowel sound Extremities: clear Neurological: alert - Procedures Procedures: Procedures Procedure Code Date OTHER GROUP THERAPY 94.44 05/24/10 RECREATIONAL THERAPY 93.81 05/24/10 Internal Medicine Assmt/Plan - Assessment Assessment: Current Active Problems Problem Status Onset PATIENT IS UNABLE TO CARE FOR SELF Acute unable to care for self htn bipolar ptsd mrsa nares seasonal allergy - Plan Plan: monitor BP continue bp medications fall precautions cpm Nutritional Asmnt/Malnutr-PDOC - Dietary Evaluation Malnutrition Findings (Please click <Entered> for more info): Nutritional Asmnt/Malnutrition Start: 03/28/17 16: 09 Text: Status: Complete Freq: Document 03/28/17 16:09 GSUN (Rec: 03/28/17 16:20 [email or web address] [email or web address]) Nutritional Asmnt/Malnutrition Patient General Information Nutritional Screening Diagnosis Diagnosis Unable to care for self, HTN, PTSD, bipolar Pertinent Medical Hx/Surgical Hx HTN Subjective Information 71 year old male. Spoke to pt in wheelchair in hallway. Pt was alert and very pleasant. Pt shared with RD information on food for homeless people, appeared to be resourceful in this topic. Pt denied nutritional concerns at this time, stated the food is good, "all is good." Avg PO intake 100% of meals since adm, meeting nutritional needs. Current Diet Order/ Nutrition Support Regular Pertinent Medications MOM, Theragran Pertinent Labs No labs. Nutritional Hx/Data Height 5 ft 9 in Height (Calculated Centimeters) 175.3 Current Weight (lbs) 190 lb Weight (Calculated Kilograms) 86.2 Weight (Calculated Grams) 53571.6 [place] Body Weight 160 Weight Status Overweight GI Symptoms Skin Integrity/Comment: E[place] 20. Skin intact. Current %PO Good (75-100%) Estimated Nutritional Goals Calories/Kcals/Kg IBW 160lb/72.7kg Kcals Calculated 1818-2181kcal (25-30kcal/kg) Protein Calculated 73g (1g/kg) Fluid: ml 1818-2181ml (1ml/kcal) Nutritional Problem 1. Problem Problem No nutritional problem at this time. Intervention/Recommendation Comments 1. Continue with current diet order. Avg PO intake is adequate. Expected Outcomes/Goals Expected Outcomes/Goals 1. PO intake conitnue to meet at least 75% of estimated nutritional needs.
[2017-04-05] MEDS: Fluticasone Propionate 0.05mg/Actuation 16gm Nasal Spray NS SCH ×2 (08:21→16:31)
[2017-04-05] MEDS: Multivitamin Tab PO SCH (08:23)
--- NOTE | 2017-04-05 12:02 | Internal Medicine Prog Note ---
Internal Medicine Subjective - Subjective Service Date: 04/05/17 Patient is:: asleep, verbal, in wheelchair Per staff patient has:: no adverse event Internal Medicine Objective - Results Recent Labs: Laboratory Last Values Urine Source CLEAN C 03/22/17 17:15 Urine Color YELLOW 03/22/17 17:15 Urine Clarity CLEAR (CLEAR) 03/22/17 17:15 Urine pH 6.5 03/22/17 17:15 Ur Specific [place] 1.025 (1.005-1.030) 03/22/17 17:15 Urine Protein 1.0 mg/dL (NEGATIVE) 03/22/17 17:15 Urine Glucose (UA) 100 mg/dL (NEGATIVE) H 03/22/17 17:15 Urine Ketones NEGATIVE mg/dL (NEGATIVE) 03/22/17 17:15 Urine Blood MODERATE (NEGATIVE) H 03/22/17 17:15 Urine Nitrate NEGATIVE (NEGATIVE) 03/22/17 17:15 Urine Bilirubin SMALL (NEGATIVE) H 03/22/17 17:15 Urine Urobilinogen 1.0 E.U./dL (0.2 - 1.0) 03/22/17 17:15 Ur Leukocyte Esterase NEGATIVE (NEGATIVE) 03/22/17 17:15 Urine RBC 5-10 /hpf (0-5) H 03/22/17 17:15 Urine WBC 0-2 /hpf (0-5) 03/22/17 17:15 Ur Epithelial Cells NONE SEEN /lpf (FEW) 03/22/17 17:15 Urine Bacteria NONE SEEN /hpf (NONE SEEN) 03/22/17 17:15 Urine Opiates Screen NEGATIVE (NEGATIVE) 03/22/17 17:15 Urine Methadone Screen NEGATIVE (NEGATIVE) 03/22/17 17:15 Ur Barbiturates Screen NEGATIVE (NEGATIVE) 03/22/17 17:15 Ur Tricyclics Screen NEGATIVE (NEGATIVE) 03/22/17 17:15 Ur Phencyclidine Scrn NEGATIVE (NEGATIVE) 03/22/17 17:15 Amphetamines Screen NEGATIVE (NEGATIVE) 03/22/17 17:15 U Methamphetamines Scrn NEGATIVE (NEGATIVE) 03/22/17 17:15 U Benzodiazepines Scrn NEGATIVE (NEGATIVE) 03/22/17 17:15 U Cocaine Metab Screen NEGATIVE (NEGATIVE) 03/22/17 17:15 U Cannabinoids Screen POSITIVE (NEGATIVE) H 03/22/17 17:15 - Physical Exam Vitals and I&O: Vital Signs Temp 98.2 F 04/05/17 05:49 Pulse 73 04/05/17 08:21 Resp 20 04/05/17 05:49 BP 155/68 04/05/17 08:21 Pulse Ox 98 04/05/17 05:49 Intake & Output 04/04/17 04/05/17 04/05/17 18:59 06:59 18:59 Intake Total 2400 Balance 2400 Intake: Oral 2400 Other: # Voids 4 # Bowel Movements 1 Active Medications: Current Medications Acetaminophen (Tylenol) 650 mg PO Q4HR PRN PRN Reason: Mild Pain / Temp above 100 Stop: 05/21/17 23:53 Last Admin: 04/05/17 01:52 Dose: 650 mg Al Hydrox/Mg Hydrox/Simethicone (Maalox) 30 ml PO Q4HR PRN PRN Reason: GI DISTRESS Stop: 05/21/17 23:53 Amlodipine Besylate (Norvasc) 5 mg PO DAILY [facility] Stop: 05/23/17 08:59 Last Admin: 04/05/17 08:21 Dose: 5 mg Clonidine HCl (Catapres) 0.1 mg PO Q6HR PRN PRN Reason: SBP GREATER THAN 160 Stop: 05/22/17 12:47 Fluticasone Propionate (Flonase) 1 spr NS BID [facility] Stop: 05/27/17 16:59 Last Admin: 04/05/17 08:21 Dose: 1 spr Lamotrigine (Lamictal) 200 mg PO BID KEELY PRN Reason: Protocol Stop: 05/22/17 16:59 Last Admin: 04/05/17 08:21 Dose: 200 mg Lorazepam (Ativan) 0.5 mg PO Q4HR PRN; Protocol PRN Reason: Anxiety Stop: 04/21/17 23:53 Last Admin: 04/04/17 22:16 Dose: 0.5 mg Magnesium Hydroxide (Milk Of Magnesia) 30 ml PO HS PRN PRN Reason: Constipation Multivitamins/Vitamin C (Theragran) 1 tab PO DAILY [facility] Stop: 05/22/17 08:59 Last Admin: 04/05/17 08:23 Dose: 1 tab Quetiapine Fumarate (Seroquel) 200 mg PO DAILY [facility] Stop: 05/31/17 08:59 Last Admin: 04/05/17 08:22 Dose: 200 mg Tamsulosin HCl (Flomax) 0.4 mg PO DAILY [facility] Stop: 05/28/17 08:59 Last Admin: 04/05/17 08:23 Dose: 0.4 mg Zolpidem Tartrate (Ambien) 10 mg PO HS PRN PRN Reason: Insomnia Stop: 05/21/17 23:53 Last Admin: 04/04/17 22:16 Dose: 10 mg General: alert HEENT: NC/AT, PERRLA Neck: Supple Lungs: CTAB Cardiovascular: RRR, Normal S1, Normal S2, without murmur Abdomen: soft, non-tender, non-distended, positive bowel sound Extremities: clear Neurological: alert - Procedures Procedures: Procedures Procedure Code Date OTHER GROUP THERAPY 94.44 05/24/10 RECREATIONAL THERAPY 93.81 05/24/10 Internal Medicine Assmt/Plan - Assessment Assessment: Current Active Problems Problem Status Onset PATIENT IS UNABLE TO CARE FOR SELF Acute unable to care for self htn bipolar ptsd mrsa nares seasonal allergy - Plan Plan: monitor BP continue bp medications fall precautions cpm Nutritional Asmnt/Malnutr-PDOC - Dietary Evaluation Malnutrition Findings (Please click <Entered> for more info): Nutritional Asmnt/Malnutrition Start: 03/28/17 16: 09 Text: Status: Complete Freq: Document 03/28/17 16:09 GSUN (Rec: 03/28/17 16:20 [email or web address]) Nutritional Asmnt/Malnutrition Patient General Information Nutritional Screening Diagnosis Diagnosis Unable to care for self, HTN, PTSD, bipolar Pertinent Medical Hx/Surgical Hx HTN Subjective Information 71 year old male. Spoke to pt in wheelchair in hallway. Pt was alert and very pleasant. Pt shared with RD information on food for homeless people, appeared to be resourceful in this topic. Pt denied nutritional concerns at this time, stated the food is good, "all is good." Avg PO intake 100% of meals since adm, meeting nutritional needs. Current Diet Order/ Nutrition Support Regular Pertinent Medications MOM, Theragran Pertinent Labs No labs. Nutritional Hx/Data Height 5 ft 9 in Height (Calculated Centimeters) 175.3 Current Weight (lbs) 190 lb Weight (Calculated Kilograms) 86.2 Weight (Calculated Grams) 66581.6 [place] Body Weight 160 Weight Status Overweight GI Symptoms Skin Integrity/Comment: Eloy 20. Skin intact. Current %PO Good (75-100%) Estimated Nutritional Goals Calories/Kcals/Kg IBW 160lb/72.7kg Kcals Calculated 1818-2181kcal (25-30kcal/kg) Protein Calculated 73g (1g/kg) Fluid: ml 1818-2181ml (1ml/kcal) Nutritional Problem 1. Problem Problem No nutritional problem at this time. Intervention/Recommendation Comments 1. Continue with current diet order. Avg PO intake is adequate. Expected Outcomes/Goals Expected Outcomes/Goals 1. PO intake conitnue to meet at least 75% of estimated nutritional needs.
--- NOTE | 2017-04-06 04:44 | Progress Notes ---
DATE: 04/05/2017 SUBJECTIVE: Case was discussed with staff of the patient, reviewed records. The patient continues to look disheveled, disorganized, internally preoccupied, demanding to leave . He is actually on a hold. He is still unpredictable, impulsive. The staff is also working on placement for this patient, has been compliant with the medication with no side effects, no sedation, no nausea, no extrapyramidal symptoms. We will continue to work with the patient in group therapy, milieu therapy, and adjust medications as needed. JOB# [id number]
[2017-04-06] MEDS: Fluticasone Propionate 0.05mg/Actuation 16gm Nasal Spray NS SCH ×2 (08:45→17:12)
[2017-04-06] MEDS: Multivitamin Tab PO SCH (08:46)
--- NOTE | 2017-04-06 13:35 | Internal Medicine Prog Note ---
Internal Medicine Subjective - Subjective Service Date: 04/06/17 Patient is:: asleep, verbal, in wheelchair Per staff patient has:: no adverse event Internal Medicine Objective - Results Recent Labs: Laboratory Last Values Urine Source CLEAN C 03/22/17 17:15 Urine Color YELLOW 03/22/17 17:15 Urine Clarity CLEAR (CLEAR) 03/22/17 17:15 Urine pH 6.5 03/22/17 17:15 Ur Specific [place] 1.025 (1.005-1.030) 03/22/17 17:15 Urine Protein 1.0 mg/dL (NEGATIVE) 03/22/17 17:15 Urine Glucose (UA) 100 mg/dL (NEGATIVE) H 03/22/17 17:15 Urine Ketones NEGATIVE mg/dL (NEGATIVE) 03/22/17 17:15 Urine Blood MODERATE (NEGATIVE) H 03/22/17 17:15 Urine Nitrate NEGATIVE (NEGATIVE) 03/22/17 17:15 Urine Bilirubin SMALL (NEGATIVE) H 03/22/17 17:15 Urine Urobilinogen 1.0 E.U./dL (0.2 - 1.0) 03/22/17 17:15 Ur Leukocyte Esterase NEGATIVE (NEGATIVE) 03/22/17 17:15 Urine RBC 5-10 /hpf (0-5) H 03/22/17 17:15 Urine WBC 0-2 /hpf (0-5) 03/22/17 17:15 Ur Epithelial Cells NONE SEEN /lpf (FEW) 03/22/17 17:15 Urine Bacteria NONE SEEN /hpf (NONE SEEN) 03/22/17 17:15 Urine Opiates Screen NEGATIVE (NEGATIVE) 03/22/17 17:15 Urine Methadone Screen NEGATIVE (NEGATIVE) 03/22/17 17:15 Ur Barbiturates Screen NEGATIVE (NEGATIVE) 03/22/17 17:15 Ur Tricyclics Screen NEGATIVE (NEGATIVE) 03/22/17 17:15 Ur Phencyclidine Scrn NEGATIVE (NEGATIVE) 03/22/17 17:15 Amphetamines Screen NEGATIVE (NEGATIVE) 03/22/17 17:15 U Methamphetamines Scrn NEGATIVE (NEGATIVE) 03/22/17 17:15 U Benzodiazepines Scrn NEGATIVE (NEGATIVE) 03/22/17 17:15 U Cocaine Metab Screen NEGATIVE (NEGATIVE) 03/22/17 17:15 U Cannabinoids Screen POSITIVE (NEGATIVE) H 03/22/17 17:15 - Physical Exam Vitals and I&O: Vital Signs Temp 97.8 F 04/06/17 06:29 Pulse 81 04/06/17 08:46 Resp 20 04/06/17 06:29 BP 149/86 04/06/17 08:46 Pulse Ox 97 04/06/17 06:29 Intake & Output 04/05/17 04/06/17 04/06/17 18:59 06:59 18:59 Intake Total 300 Balance 300 Intake: Oral 300 Other: # Voids 2 # Bowel Movements 1 Active Medications: Current Medications Acetaminophen (Tylenol) 650 mg PO Q4HR PRN PRN Reason: Mild Pain / Temp above 100 Stop: 05/21/17 23:53 Last Admin: 04/05/17 01:52 Dose: 650 mg Al Hydrox/Mg Hydrox/Simethicone (Maalox) 30 ml PO Q4HR PRN PRN Reason: GI DISTRESS Stop: 05/21/17 23:53 Amlodipine Besylate (Norvasc) 5 mg PO DAILY [facility] Stop: 05/23/17 08:59 Last Admin: 04/06/17 08:46 Dose: 5 mg Clonidine HCl (Catapres) 0.1 mg PO Q6HR PRN PRN Reason: SBP GREATER THAN 160 Stop: 05/22/17 12:47 Fluticasone Propionate (Flonase) 1 spr NS BID [facility] Stop: 05/27/17 16:59 Last Admin: 04/06/17 08:45 Dose: 1 spr Lamotrigine (Lamictal) 200 mg PO BID KEELY PRN Reason: Protocol Stop: 05/22/17 16:59 Last Admin: 04/06/17 08:45 Dose: 200 mg Magnesium Hydroxide (Milk Of Magnesia) 30 ml PO HS PRN PRN Reason: Constipation Multivitamins/Vitamin C (Theragran) 1 tab PO DAILY [facility] Stop: 05/22/17 08:59 Last Admin: 04/06/17 08:46 Dose: 1 tab Quetiapine Fumarate (Seroquel) 200 mg PO DAILY [facility] Stop: 05/31/17 08:59 Last Admin: 04/06/17 08:46 Dose: 200 mg Tamsulosin HCl (Flomax) 0.4 mg PO DAILY [facility] Stop: 05/28/17 08:59 Last Admin: 04/06/17 08:45 Dose: 0.4 mg Zolpidem Tartrate (Ambien) 10 mg PO HS PRN PRN Reason: Insomnia Stop: 05/21/17 23:53 Last Admin: 04/05/17 22:45 Dose: 10 mg General: alert HEENT: NC/AT, PERRLA Neck: Supple Lungs: CTAB Cardiovascular: RRR, Normal S1, Normal S2, without murmur Abdomen: soft, non-tender, non-distended, positive bowel sound Extremities: clear Neurological: alert - Procedures Procedures: Procedures Procedure Code Date OTHER GROUP THERAPY 94.44 05/24/10 RECREATIONAL THERAPY 93.81 05/24/10 Internal Medicine Assmt/Plan - Assessment Assessment: Current Active Problems Problem Status Onset PATIENT IS UNABLE TO CARE FOR SELF Acute unable to care for self htn bipolar ptsd mrsa nares seasonal allergy - Plan Plan: monitor BP continue bp medications fall precautions cpm Nutritional Asmnt/Malnutr-PDOC - Dietary Evaluation Malnutrition Findings (Please click <Entered> for more info): Nutritional Asmnt/Malnutrition Start: 03/28/17 16: 09 Text: Status: Complete Freq: Document 03/28/17 16:09 GSUN (Rec: 03/28/17 16:20 [email or web address]) Nutritional Asmnt/Malnutrition Patient General Information Nutritional Screening Diagnosis Diagnosis Unable to care for self, HTN, PTSD, bipolar Pertinent Medical Hx/Surgical Hx HTN Subjective Information 71 year old male. Spoke to pt in wheelchair in hallway. Pt was alert and very pleasant. Pt shared with RD information on food for homeless people, appeared to be resourceful in this topic. Pt denied nutritional concerns at this time, stated the food is good, "all is good." Avg PO intake 100% of meals since adm, meeting nutritional needs. Current Diet Order/ Nutrition Support Regular Pertinent Medications MOM, Theragran Pertinent Labs No labs. Nutritional Hx/Data Height 5 ft 9 in Height (Calculated Centimeters) 175.3 Current Weight (lbs) 190 lb Weight (Calculated Kilograms) 86.2 Weight (Calculated Grams) 83451.6 [place] Body Weight 160 Weight Status Overweight GI Symptoms Skin Integrity/Comment: Eloy 20. Skin intact. Current %PO Good (75-100%) Estimated Nutritional Goals Calories/Kcals/Kg IBW 160lb/72.7kg Kcals Calculated 1818-2181kcal (25-30kcal/kg) Protein Calculated 73g (1g/kg) Fluid: ml 1818-2181ml (1ml/kcal) Nutritional Problem 1. Problem Problem No nutritional problem at this time. Intervention/Recommendation Comments 1. Continue with current diet order. Avg PO intake is adequate. Expected Outcomes/Goals Expected Outcomes/Goals 1. PO intake conitnue to meet at least 75% of estimated nutritional needs.
--- NOTE | 2017-04-06 19:24 | Progress Notes ---
DATE: 04/06/2017 SUBJECTIVE: Chart reviewed and the patient interviewed, also discussed the patient's condition with the staff and reviewed records and labs. The patient continued to be extremely irritable and anxious. The patient also is still disheveled and . Also, rambling and thought processes are circumstantial and tangential with flight of ideas. He is unable to provide any safe plan for self-care and is still uncooperative with case liner in regard to placement issue. ASSESSMENT: The patient is still psychotic. TREATMENT PLAN: We will continue to monitor his behavior and his condition closely. Continue to work on his psychosis and placement issue. JOB# [id number]
[2017-04-07] MEDS: Fluticasone Propionate 0.05mg/Actuation 16gm Nasal Spray NS SCH ×2 (08:30→16:23)
[2017-04-07] MEDS: Multivitamin Tab PO SCH (08:30)
--- NOTE | 2017-04-07 12:53 | Internal Medicine Prog Note ---
Internal Medicine Subjective - Subjective Service Date: 04/07/17 Patient is:: asleep, verbal, in wheelchair Per staff patient has:: no adverse event Internal Medicine Objective - Results Recent Labs: Laboratory Last Values Urine Source CLEAN C 03/22/17 17:15 Urine Color YELLOW 03/22/17 17:15 Urine Clarity CLEAR (CLEAR) 03/22/17 17:15 Urine pH 6.5 03/22/17 17:15 Ur Specific [place] 1.025 (1.005-1.030) 03/22/17 17:15 Urine Protein 1.0 mg/dL (NEGATIVE) 03/22/17 17:15 Urine Glucose (UA) 100 mg/dL (NEGATIVE) H 03/22/17 17:15 Urine Ketones NEGATIVE mg/dL (NEGATIVE) 03/22/17 17:15 Urine Blood MODERATE (NEGATIVE) H 03/22/17 17:15 Urine Nitrate NEGATIVE (NEGATIVE) 03/22/17 17:15 Urine Bilirubin SMALL (NEGATIVE) H 03/22/17 17:15 Urine Urobilinogen 1.0 E.U./dL (0.2 - 1.0) 03/22/17 17:15 Ur Leukocyte Esterase NEGATIVE (NEGATIVE) 03/22/17 17:15 Urine RBC 5-10 /hpf (0-5) H 03/22/17 17:15 Urine WBC 0-2 /hpf (0-5) 03/22/17 17:15 Ur Epithelial Cells NONE SEEN /lpf (FEW) 03/22/17 17:15 Urine Bacteria NONE SEEN /hpf (NONE SEEN) 03/22/17 17:15 Urine Opiates Screen NEGATIVE (NEGATIVE) 03/22/17 17:15 Urine Methadone Screen NEGATIVE (NEGATIVE) 03/22/17 17:15 Ur Barbiturates Screen NEGATIVE (NEGATIVE) 03/22/17 17:15 Ur Tricyclics Screen NEGATIVE (NEGATIVE) 03/22/17 17:15 Ur Phencyclidine Scrn NEGATIVE (NEGATIVE) 03/22/17 17:15 Amphetamines Screen NEGATIVE (NEGATIVE) 03/22/17 17:15 U Methamphetamines Scrn NEGATIVE (NEGATIVE) 03/22/17 17:15 U Benzodiazepines Scrn NEGATIVE (NEGATIVE) 03/22/17 17:15 U Cocaine Metab Screen NEGATIVE (NEGATIVE) 03/22/17 17:15 U Cannabinoids Screen POSITIVE (NEGATIVE) H 03/22/17 17:15 - Physical Exam Vitals and I&O: Vital Signs Temp 97.2 F 04/07/17 06:25 Pulse 75 04/07/17 08:30 Resp 20 04/07/17 06:25 BP 144/83 04/07/17 08:30 Pulse Ox 99 04/07/17 06:25 Intake & Output 04/06/17 04/07/17 04/07/17 18:59 06:59 18:59 Intake Total 870 120 Balance 870 120 Intake: Oral 870 120 Other: # Voids 4 3 # Bowel Movements 1 Active Medications: Current Medications Acetaminophen (Tylenol) 650 mg PO Q4HR PRN PRN Reason: Mild Pain / Temp above 100 Stop: 05/21/17 23:53 Last Admin: 04/05/17 01:52 Dose: 650 mg Al Hydrox/Mg Hydrox/Simethicone (Maalox) 30 ml PO Q4HR PRN PRN Reason: GI DISTRESS Stop: 05/21/17 23:53 Amlodipine Besylate (Norvasc) 5 mg PO DAILY [facility] Stop: 05/23/17 08:59 Last Admin: 04/07/17 08:30 Dose: 5 mg Clonidine HCl (Catapres) 0.1 mg PO Q6HR PRN PRN Reason: SBP GREATER THAN 160 Stop: 05/22/17 12:47 Fluticasone Propionate (Flonase) 1 spr NS BID [facility] Stop: 05/27/17 16:59 Last Admin: 04/07/17 08:30 Dose: 1 spr Lamotrigine (Lamictal) 200 mg PO BID KEELY PRN Reason: Protocol Stop: 05/22/17 16:59 Last Admin: 04/07/17 08:30 Dose: 200 mg Magnesium Hydroxide (Milk Of Magnesia) 30 ml PO HS PRN PRN Reason: Constipation Multivitamins/Vitamin C (Theragran) 1 tab PO DAILY [facility] Stop: 05/22/17 08:59 Last Admin: 04/07/17 08:30 Dose: 1 tab Quetiapine Fumarate (Seroquel) 200 mg PO DAILY [facility] Stop: 05/31/17 08:59 Last Admin: 04/07/17 08:30 Dose: 200 mg Quetiapine Fumarate (Seroquel) 200 mg PO HS KEELY PRN Reason: Protocol Stop: 06/06/17 20:59 Tamsulosin HCl (Flomax) 0.4 mg PO DAILY [facility] Stop: 05/28/17 08:59 Last Admin: 04/07/17 08:30 Dose: 0.4 mg Zolpidem Tartrate (Ambien) 10 mg PO HS PRN PRN Reason: Insomnia Stop: 05/21/17 23:53 Last Admin: 04/06/17 22:32 Dose: 10 mg General: alert HEENT: NC/AT, PERRLA Neck: Supple Lungs: CTAB Cardiovascular: RRR, Normal S1, Normal S2, without murmur Abdomen: soft, non-tender, non-distended, positive bowel sound Extremities: clear Neurological: alert - Procedures Procedures: Procedures Procedure Code Date OTHER GROUP THERAPY 94.44 05/24/10 RECREATIONAL THERAPY 93.81 05/24/10 Internal Medicine Assmt/Plan - Assessment Assessment: Current Active Problems Problem Status Onset PATIENT IS UNABLE TO CARE FOR SELF Acute unable to care for self htn bipolar ptsd mrsa nares seasonal allergy - Plan Plan: monitor BP continue bp medications fall precautions cpm Nutritional Asmnt/Malnutr-PDOC - Dietary Evaluation Malnutrition Findings (Please click <Entered> for more info): Nutritional Asmnt/Malnutrition Start: 03/28/17 16: 09 Text: Status: Complete Freq: Document 03/28/17 16:09 IQRA (Rec: 03/28/17 16:20 [email or web address] [email or web address]) Nutritional Asmnt/Malnutrition Patient General Information Nutritional Screening Diagnosis Diagnosis Unable to care for self, HTN, PTSD, bipolar Pertinent Medical Hx/Surgical Hx HTN Subjective Information 71 year old male. Spoke to pt in wheelchair in hallway. Pt was alert and very pleasant. Pt shared with RD information on food for homeless people, appeared to be resourceful in this topic. Pt denied nutritional concerns at this time, stated the food is good, "all is good." Avg PO intake 100% of meals since adm, meeting nutritional needs. Current Diet Order/ Nutrition Support Regular Pertinent Medications MOM, Theragran Pertinent Labs No labs. Nutritional Hx/Data Height 5 ft 9 in Height (Calculated Centimeters) 175.3 Current Weight (lbs) 190 lb Weight (Calculated Kilograms) 86.2 Weight (Calculated Grams) 46368.6 [place] Body Weight 160 Weight Status Overweight GI Symptoms Skin Integrity/Comment: Eloy 20. Skin intact. Current %PO Good (75-100%) Estimated Nutritional Goals Calories/Kcals/Kg IBW 160lb/72.7kg Kcals Calculated 1818-2181kcal (25-30kcal/kg) Protein Calculated 73g (1g/kg) Fluid: ml 1818-2181ml (1ml/kcal) Nutritional Problem 1. Problem Problem No nutritional problem at this time. Intervention/Recommendation Comments 1. Continue with current diet order. Avg PO intake is adequate. Expected Outcomes/Goals Expected Outcomes/Goals 1. PO intake conitnue to meet at least 75% of estimated nutritional needs.
--- NOTE | 2017-04-07 22:56 | Progress Notes ---
DATE: 04/07/2017 SUBJECTIVE: Chart reviewed and the patient interviewed, also discussed the patient's condition with the staff and reviewed records and labs. The patient continued to be extremely agitated and is still severely irritable. The patient also is still suspicious and paranoid and argumentative. The patient also said that he wants to shoot the director of casework has been postponing his discharge, while at the same time he cannot come up with any safe plan for placement or for self-care. The patient also is still in angry and in irritable mood and needs lots of redirections. ASSESSMENT: The patient is still psychotic and is still . TREATMENT PLAN: We will continue monitoring his behavior and his condition closely. Also, we will increase Seroquel to 200 mg in the morning and 200 mg at bedtime. Also, continue to work on discharge plans with director of casework, hopefully once placement is available planning to discharge the patient and follow up as an outpatient. JOB# [id number]
[2017-04-08] MEDS: Multivitamin Tab PO SCH (08:12)
[2017-04-08] MEDS: Fluticasone Propionate 0.05mg/Actuation 16gm Nasal Spray NS SCH ×2 (08:12→16:06)
--- NOTE | 2017-04-08 12:20 | Internal Medicine Prog Note ---
Internal Medicine Subjective - Subjective Service Date: 04/08/17 Patient is:: awake, verbal, in wheelchair Per staff patient has:: no adverse event Internal Medicine Objective - Results Recent Labs: Laboratory Last Values Urine Source CLEAN C 03/22/17 17:15 Urine Color YELLOW 03/22/17 17:15 Urine Clarity CLEAR (CLEAR) 03/22/17 17:15 Urine pH 6.5 03/22/17 17:15 Ur Specific [place] 1.025 (1.005-1.030) 03/22/17 17:15 Urine Protein 1.0 mg/dL (NEGATIVE) 03/22/17 17:15 Urine Glucose (UA) 100 mg/dL (NEGATIVE) H 03/22/17 17:15 Urine Ketones NEGATIVE mg/dL (NEGATIVE) 03/22/17 17:15 Urine Blood MODERATE (NEGATIVE) H 03/22/17 17:15 Urine Nitrate NEGATIVE (NEGATIVE) 03/22/17 17:15 Urine Bilirubin SMALL (NEGATIVE) H 03/22/17 17:15 Urine Urobilinogen 1.0 E.U./dL (0.2 - 1.0) 03/22/17 17:15 Ur Leukocyte Esterase NEGATIVE (NEGATIVE) 03/22/17 17:15 Urine RBC 5-10 /hpf (0-5) H 03/22/17 17:15 Urine WBC 0-2 /hpf (0-5) 03/22/17 17:15 Ur Epithelial Cells NONE SEEN /lpf (FEW) 03/22/17 17:15 Urine Bacteria NONE SEEN /hpf (NONE SEEN) 03/22/17 17:15 Urine Opiates Screen NEGATIVE (NEGATIVE) 03/22/17 17:15 Urine Methadone Screen NEGATIVE (NEGATIVE) 03/22/17 17:15 Ur Barbiturates Screen NEGATIVE (NEGATIVE) 03/22/17 17:15 Ur Tricyclics Screen NEGATIVE (NEGATIVE) 03/22/17 17:15 Ur Phencyclidine Scrn NEGATIVE (NEGATIVE) 03/22/17 17:15 Amphetamines Screen NEGATIVE (NEGATIVE) 03/22/17 17:15 U Methamphetamines Scrn NEGATIVE (NEGATIVE) 03/22/17 17:15 U Benzodiazepines Scrn NEGATIVE (NEGATIVE) 03/22/17 17:15 U Cocaine Metab Screen NEGATIVE (NEGATIVE) 03/22/17 17:15 U Cannabinoids Screen POSITIVE (NEGATIVE) H 03/22/17 17:15 - Physical Exam Vitals and I&O: Vital Signs Temp 98.4 F 04/08/17 05:58 Pulse 68 04/08/17 08:12 Resp 20 04/08/17 05:58 BP 158/69 04/08/17 08:12 Pulse Ox 98 04/08/17 05:58 Intake & Output 04/07/17 04/08/17 04/08/17 18:59 06:59 18:59 Intake Total 1200 300 Balance 1200 300 Intake: Oral 1200 300 Other: # Voids 4 1 # Bowel Movements 1 0 Active Medications: Current Medications Acetaminophen (Tylenol) 650 mg PO Q4HR PRN PRN Reason: Mild Pain / Temp above 100 Stop: 05/21/17 23:53 Last Admin: 04/08/17 02:06 Dose: 650 mg Al Hydrox/Mg Hydrox/Simethicone (Maalox) 30 ml PO Q4HR PRN PRN Reason: GI DISTRESS Stop: 05/21/17 23:53 Amlodipine Besylate (Norvasc) 5 mg PO DAILY [facility] Stop: 05/23/17 08:59 Last Admin: 04/08/17 08:12 Dose: 5 mg Clonidine HCl (Catapres) 0.1 mg PO Q6HR PRN PRN Reason: SBP GREATER THAN 160 Stop: 05/22/17 12:47 Fluticasone Propionate (Flonase) 1 spr NS BID [facility] Stop: 05/27/17 16:59 Last Admin: 04/08/17 08:12 Dose: 1 spr Lamotrigine (Lamictal) 200 mg PO BID KEELY PRN Reason: Protocol Stop: 05/22/17 16:59 Last Admin: 04/08/17 08:11 Dose: 200 mg Magnesium Hydroxide (Milk Of Magnesia) 30 ml PO HS PRN PRN Reason: Constipation Multivitamins/Vitamin C (Theragran) 1 tab PO DAILY [facility] Stop: 05/22/17 08:59 Last Admin: 04/08/17 08:12 Dose: 1 tab Quetiapine Fumarate (Seroquel) 200 mg PO DAILY [facility] Stop: 05/31/17 08:59 Last Admin: 04/08/17 08:11 Dose: 200 mg Quetiapine Fumarate (Seroquel) 200 mg PO HS KEELY PRN Reason: Protocol Stop: 06/06/17 20:59 Last Admin: 04/07/17 21:04 Dose: 200 mg Tamsulosin HCl (Flomax) 0.4 mg PO DAILY [facility] Stop: 05/28/17 08:59 Last Admin: 04/08/17 08:11 Dose: 0.4 mg Zolpidem Tartrate (Ambien) 10 mg PO HS PRN PRN Reason: Insomnia Stop: 05/21/17 23:53 Last Admin: 04/06/17 22:32 Dose: 10 mg General: alert HEENT: NC/AT, PERRLA Neck: Supple Lungs: CTAB Cardiovascular: RRR, Normal S1, Normal S2, without murmur Abdomen: soft, non-tender, non-distended, positive bowel sound Extremities: clear Neurological: alert - Procedures Procedures: Procedures Procedure Code Date OTHER GROUP THERAPY 94.44 05/24/10 RECREATIONAL THERAPY 93.81 05/24/10 Internal Medicine Assmt/Plan - Assessment Assessment: Current Active Problems Problem Status Onset PATIENT IS UNABLE TO CARE FOR SELF Acute unable to care for self htn bipolar ptsd mrsa nares seasonal allergy - Plan Plan: monitor BP continue bp medications fall precautions cpm Nutritional Asmnt/Malnutr-PDOC - Dietary Evaluation Malnutrition Findings (Please click <Entered> for more info): Nutritional Asmnt/Malnutrition Start: 03/28/17 16: 09 Text: Status: Complete Freq: Document 03/28/17 16:09 GSUN (Rec: 03/28/17 16:20 GSANNE MARIE [email or web address]) Nutritional Asmnt/Malnutrition Patient General Information Nutritional Screening Diagnosis Diagnosis Unable to care for self, HTN, PTSD, bipolar Pertinent Medical Hx/Surgical Hx HTN Subjective Information 71 year old male. Spoke to pt in wheelchair in hallway. Pt was alert and very pleasant. Pt shared with RD information on food for homeless people, appeared to be resourceful in this topic. Pt denied nutritional concerns at this time, stated the food is good, "all is good." Avg PO intake 100% of meals since adm, meeting nutritional needs. Current Diet Order/ Nutrition Support Regular Pertinent Medications MOM, Theragran Pertinent Labs No labs. Nutritional Hx/Data Height 5 ft 9 in Height (Calculated Centimeters) 175.3 Current Weight (lbs) 190 lb Weight (Calculated Kilograms) 86.2 Weight (Calculated Grams) 20428.6 [place] Body Weight 160 Weight Status Overweight GI Symptoms Skin Integrity/Comment: Eloy 20. Skin intact. Current %PO Good (75-100%) Estimated Nutritional Goals Calories/Kcals/Kg IBW 160lb/72.7kg Kcals Calculated 1818-2181kcal (25-30kcal/kg) Protein Calculated 73g (1g/kg) Fluid: ml 1818-2181ml (1ml/kcal) Nutritional Problem 1. Problem Problem No nutritional problem at this time. Intervention/Recommendation Comments 1. Continue with current diet order. Avg PO intake is adequate. Expected Outcomes/Goals Expected Outcomes/Goals 1. PO intake conitnue to meet at least 75% of estimated nutritional needs.
--- NOTE | 2017-04-09 03:04 | Progress Notes ---
DATE: 04/08/2017 SUBJECTIVE: Chart reviewed and the patient interviewed, also discussed the patient's condition with the staff and reviewed records and labs. The patient continued to be extremely irritable and in angry mood. The patient also is still disheveled . He also is still argumentative and exhibiting manic behavior, thinking that he has lots of money and lots of power. At the same time, he is still unable to provide any safe plan for self-care or for finding a place to live. He is still angry and he still at times is threatening and using . On the other hand, the patient is compliant with taking his medications. ASSESSMENT: The patient is still psychotic and agitated. TREATMENT PLAN: We will continue to monitor his behavior and his condition closely. Also, continue to work on his placement. culture manager is still having difficulty finding a place for the patient and the patient today will be interviewed by "[facility]." Hopefully, they will accept him back and then he can be transferred there. JOB# [id number]
[2017-04-09] MEDS: Multivitamin Tab PO SCH (08:50)
[2017-04-09] MEDS: Fluticasone Propionate 0.05mg/Actuation 16gm Nasal Spray NS SCH ×2 (08:50→17:21)
--- NOTE | 2017-04-09 11:26 | Internal Medicine Prog Note ---
Internal Medicine Subjective - Subjective Service Date: 04/09/17 Patient is:: awake, verbal, in wheelchair Per staff patient has:: no adverse event Internal Medicine Objective - Results Recent Labs: Laboratory Last Values Urine Source CLEAN C 03/22/17 17:15 Urine Color YELLOW 03/22/17 17:15 Urine Clarity CLEAR (CLEAR) 03/22/17 17:15 Urine pH 6.5 03/22/17 17:15 Ur Specific [place] 1.025 (1.005-1.030) 03/22/17 17:15 Urine Protein 1.0 mg/dL (NEGATIVE) 03/22/17 17:15 Urine Glucose (UA) 100 mg/dL (NEGATIVE) H 03/22/17 17:15 Urine Ketones NEGATIVE mg/dL (NEGATIVE) 03/22/17 17:15 Urine Blood MODERATE (NEGATIVE) H 03/22/17 17:15 Urine Nitrate NEGATIVE (NEGATIVE) 03/22/17 17:15 Urine Bilirubin SMALL (NEGATIVE) H 03/22/17 17:15 Urine Urobilinogen 1.0 E.U./dL (0.2 - 1.0) 03/22/17 17:15 Ur Leukocyte Esterase NEGATIVE (NEGATIVE) 03/22/17 17:15 Urine RBC 5-10 /hpf (0-5) H 03/22/17 17:15 Urine WBC 0-2 /hpf (0-5) 03/22/17 17:15 Ur Epithelial Cells NONE SEEN /lpf (FEW) 03/22/17 17:15 Urine Bacteria NONE SEEN /hpf (NONE SEEN) 03/22/17 17:15 Urine Opiates Screen NEGATIVE (NEGATIVE) 03/22/17 17:15 Urine Methadone Screen NEGATIVE (NEGATIVE) 03/22/17 17:15 Ur Barbiturates Screen NEGATIVE (NEGATIVE) 03/22/17 17:15 Ur Tricyclics Screen NEGATIVE (NEGATIVE) 03/22/17 17:15 Ur Phencyclidine Scrn NEGATIVE (NEGATIVE) 03/22/17 17:15 Amphetamines Screen NEGATIVE (NEGATIVE) 03/22/17 17:15 U Methamphetamines Scrn NEGATIVE (NEGATIVE) 03/22/17 17:15 U Benzodiazepines Scrn NEGATIVE (NEGATIVE) 03/22/17 17:15 U Cocaine Metab Screen NEGATIVE (NEGATIVE) 03/22/17 17:15 U Cannabinoids Screen POSITIVE (NEGATIVE) H 03/22/17 17:15 - Physical Exam Vitals and I&O: Vital Signs Temp 97.9 F 04/08/17 20:00 Pulse 73 04/09/17 08:49 Resp 19 04/08/17 20:00 BP 127/58 04/09/17 08:49 Pulse Ox 96 04/08/17 20:00 Intake & Output 04/08/17 04/09/17 04/09/17 18:59 06:59 18:59 Intake Total 1200 300 Balance 1200 300 Intake: Oral 1200 300 Other: # Voids 4 2 # Bowel Movements 1 0 Active Medications: Current Medications Acetaminophen (Tylenol) 650 mg PO Q4HR PRN PRN Reason: Mild Pain / Temp above 100 Stop: 05/21/17 23:53 Last Admin: 04/08/17 02:06 Dose: 650 mg Al Hydrox/Mg Hydrox/Simethicone (Maalox) 30 ml PO Q4HR PRN PRN Reason: GI DISTRESS Stop: 05/21/17 23:53 Amlodipine Besylate (Norvasc) 5 mg PO DAILY [facility] Stop: 05/23/17 08:59 Last Admin: 04/09/17 08:49 Dose: 5 mg Clonidine HCl (Catapres) 0.1 mg PO Q6HR PRN PRN Reason: SBP GREATER THAN 160 Stop: 05/22/17 12:47 Fluticasone Propionate (Flonase) 1 spr NS BID [facility] Stop: 05/27/17 16:59 Last Admin: 04/09/17 08:50 Dose: 1 spr Lamotrigine (Lamictal) 200 mg PO BID KEELY PRN Reason: Protocol Stop: 05/22/17 16:59 Last Admin: 04/09/17 08:50 Dose: 200 mg Magnesium Hydroxide (Milk Of Magnesia) 30 ml PO HS PRN PRN Reason: Constipation Multivitamins/Vitamin C (Theragran) 1 tab PO DAILY [facility] Stop: 05/22/17 08:59 Last Admin: 04/09/17 08:50 Dose: 1 tab Quetiapine Fumarate (Seroquel) 200 mg PO DAILY [facility] Stop: 05/31/17 08:59 Last Admin: 04/09/17 08:49 Dose: 200 mg Quetiapine Fumarate (Seroquel) 200 mg PO HS KEELY PRN Reason: Protocol Stop: 06/06/17 20:59 Last Admin: 04/08/17 20:44 Dose: 200 mg Tamsulosin HCl (Flomax) 0.4 mg PO DAILY [facility] Stop: 05/28/17 08:59 Last Admin: 04/09/17 08:50 Dose: 0.4 mg Zolpidem Tartrate (Ambien) 10 mg PO HS PRN PRN Reason: Insomnia Stop: 05/21/17 23:53 Last Admin: 04/08/17 22:31 Dose: 10 mg General: alert HEENT: NC/AT, PERRLA Neck: Supple Lungs: CTAB Cardiovascular: RRR, Normal S1, Normal S2, without murmur Abdomen: soft, non-tender, non-distended, positive bowel sound Extremities: clear Neurological: alert - Procedures Procedures: Procedures Procedure Code Date OTHER GROUP THERAPY 94.44 05/24/10 RECREATIONAL THERAPY 93.81 05/24/10 Internal Medicine Assmt/Plan - Assessment Assessment: Current Active Problems Problem Status Onset PATIENT IS UNABLE TO CARE FOR SELF Acute unable to care for self htn bipolar ptsd mrsa nares seasonal allergy - Plan Plan: monitor BP continue bp medications fall precautions cpm Nutritional Asmnt/Malnutr-PDOC - Dietary Evaluation Malnutrition Findings (Please click <Entered> for more info): Nutritional Asmnt/Malnutrition Start: 03/28/17 16: 09 Text: Status: Complete Freq: Document 03/28/17 16:09 GSUN (Rec: 03/28/17 16:20 GSANNE MARIE [email or web address]) Nutritional Asmnt/Malnutrition Patient General Information Nutritional Screening Diagnosis Diagnosis Unable to care for self, HTN, PTSD, bipolar Pertinent Medical Hx/Surgical Hx HTN Subjective Information 71 year old male. Spoke to pt in wheelchair in hallway. Pt was alert and very pleasant. Pt shared with RD information on food for homeless people, appeared to be resourceful in this topic. Pt denied nutritional concerns at this time, stated the food is good, "all is good." Avg PO intake 100% of meals since adm, meeting nutritional needs. Current Diet Order/ Nutrition Support Regular Pertinent Medications MOM, Theragran Pertinent Labs No labs. Nutritional Hx/Data Height 5 ft 9 in Height (Calculated Centimeters) 175.3 Current Weight (lbs) 190 lb Weight (Calculated Kilograms) 86.2 Weight (Calculated Grams) 80599.6 [place] Body Weight 160 Weight Status Overweight GI Symptoms Skin Integrity/Comment: Eloy 20. Skin intact. Current %PO Good (75-100%) Estimated Nutritional Goals Calories/Kcals/Kg IBW 160lb/72.7kg Kcals Calculated 1818-2181kcal (25-30kcal/kg) Protein Calculated 73g (1g/kg) Fluid: ml 1818-2181ml (1ml/kcal) Nutritional Problem 1. Problem Problem No nutritional problem at this time. Intervention/Recommendation Comments 1. Continue with current diet order. Avg PO intake is adequate. Expected Outcomes/Goals Expected Outcomes/Goals 1. PO intake conitnue to meet at least 75% of estimated nutritional needs.
--- NOTE | 2017-04-09 12:12 | Progress Notes ---
DATE: 04/09/2017 SUBJECTIVE: The patient seen, chart reviewed, discussed with staff. I have seen this patient previously sleeping in the dining room, but arousable, demanding to go home, anxious, ____ smoking. Dr. Dumont notes that he continues to be agitated, irritable, suspicion, paranoid, believes there is some sort of conspiracy to keep him here. The patient making ____ to hurt others. He was apparently making statements that he wanted to wound or shoot the case reviewer, so there was some delay in his discharge; therefore. The patient minimizing, states that there was no reason for him to be here and that it has been a mistake, eating with prompting, ADLs with prompting. He is pretty disheveled. ASSESSMENT: The patient is still aggressive, agitated, making homicidal statements, concerning statements to hurt others. PLAN: We will continue to monitor, continue to titrate medications given recent dose increase ____ medications. We will continue at current dose. JOB# [id number]
[2017-04-10] MEDS: Multivitamin Tab PO SCH (08:42)
[2017-04-10] MEDS: Fluticasone Propionate 0.05mg/Actuation 16gm Nasal Spray NS SCH ×2 (08:43→16:52)
--- NOTE | 2017-04-10 12:52 | Progress Notes ---
DATE: 04/10/2017 SUBJECTIVE: The patient seen, chart reviewed, discussed with staff. The patient remains upset, agitated, argumentative, irritable, suspicious, believes she is here due to a conspiracy. First threatening to shoot the case monitor, shoot other people on the unit. These events postponed his discharge, not able to really control his impulse and anger. He is sleeping, but arousable, not really talking to me today. ASSESSMENT: The patient remains upset, threatening, not safe for discharge, still ____ safety rest. PLAN: We will continue to monitor given recent dose of increase in the Seroquel. We will continue at current dose. We are trying to keep the patient calm at this time for safe discharge. JOB# [id number]
--- NOTE | 2017-04-10 13:22 | Internal Medicine Prog Note ---
Internal Medicine Subjective - Subjective Service Date: 04/10/17 Patient is:: awake, verbal, in wheelchair Per staff patient has:: no adverse event Internal Medicine Objective - Results Recent Labs: Laboratory Last Values Urine Source CLEAN C 03/22/17 17:15 Urine Color YELLOW 03/22/17 17:15 Urine Clarity CLEAR (CLEAR) 03/22/17 17:15 Urine pH 6.5 03/22/17 17:15 Ur Specific [place] 1.025 (1.005-1.030) 03/22/17 17:15 Urine Protein 1.0 mg/dL (NEGATIVE) 03/22/17 17:15 Urine Glucose (UA) 100 mg/dL (NEGATIVE) H 03/22/17 17:15 Urine Ketones NEGATIVE mg/dL (NEGATIVE) 03/22/17 17:15 Urine Blood MODERATE (NEGATIVE) H 03/22/17 17:15 Urine Nitrate NEGATIVE (NEGATIVE) 03/22/17 17:15 Urine Bilirubin SMALL (NEGATIVE) H 03/22/17 17:15 Urine Urobilinogen 1.0 E.U./dL (0.2 - 1.0) 03/22/17 17:15 Ur Leukocyte Esterase NEGATIVE (NEGATIVE) 03/22/17 17:15 Urine RBC 5-10 /hpf (0-5) H 03/22/17 17:15 Urine WBC 0-2 /hpf (0-5) 03/22/17 17:15 Ur Epithelial Cells NONE SEEN /lpf (FEW) 03/22/17 17:15 Urine Bacteria NONE SEEN /hpf (NONE SEEN) 03/22/17 17:15 Urine Opiates Screen NEGATIVE (NEGATIVE) 03/22/17 17:15 Urine Methadone Screen NEGATIVE (NEGATIVE) 03/22/17 17:15 Ur Barbiturates Screen NEGATIVE (NEGATIVE) 03/22/17 17:15 Ur Tricyclics Screen NEGATIVE (NEGATIVE) 03/22/17 17:15 Ur Phencyclidine Scrn NEGATIVE (NEGATIVE) 03/22/17 17:15 Amphetamines Screen NEGATIVE (NEGATIVE) 03/22/17 17:15 U Methamphetamines Scrn NEGATIVE (NEGATIVE) 03/22/17 17:15 U Benzodiazepines Scrn NEGATIVE (NEGATIVE) 03/22/17 17:15 U Cocaine Metab Screen NEGATIVE (NEGATIVE) 03/22/17 17:15 U Cannabinoids Screen POSITIVE (NEGATIVE) H 03/22/17 17:15 - Physical Exam Vitals and I&O: Vital Signs Temp 97.2 F 04/10/17 06:31 Pulse 65 04/10/17 08:41 Resp 18 04/10/17 08:00 BP 155/83 04/10/17 08:41 Pulse Ox 99 04/10/17 06:31 Intake & Output 04/09/17 04/10/17 04/10/17 18:59 06:59 18:59 Intake Total 1200 120 Balance 1200 120 Intake: Oral 1200 120 Other: # Voids 3 3 # Bowel Movements 1 Active Medications: Current Medications Acetaminophen (Tylenol) 650 mg PO Q4HR PRN PRN Reason: Mild Pain / Temp above 100 Stop: 05/21/17 23:53 Last Admin: 04/08/17 02:06 Dose: 650 mg Al Hydrox/Mg Hydrox/Simethicone (Maalox) 30 ml PO Q4HR PRN PRN Reason: GI DISTRESS Stop: 05/21/17 23:53 Amlodipine Besylate (Norvasc) 5 mg PO DAILY [facility] Stop: 05/23/17 08:59 Last Admin: 04/10/17 08:41 Dose: 5 mg Clonidine HCl (Catapres) 0.1 mg PO Q6HR PRN PRN Reason: SBP GREATER THAN 160 Stop: 05/22/17 12:47 Fluticasone Propionate (Flonase) 1 spr NS BID [facility] Stop: 05/27/17 16:59 Last Admin: 04/10/17 08:43 Dose: 1 spr Lamotrigine (Lamictal) 200 mg PO BID [facility] PRN Reason: Protocol Stop: 05/22/17 16:59 Last Admin: 04/10/17 08:42 Dose: 200 mg Magnesium Hydroxide (Milk Of Magnesia) 30 ml PO HS PRN PRN Reason: Constipation Multivitamins/Vitamin C (Theragran) 1 tab PO DAILY [facility] Stop: 05/22/17 08:59 Last Admin: 04/10/17 08:42 Dose: 1 tab Quetiapine Fumarate (Seroquel) 200 mg PO DAILY [facility] Stop: 05/31/17 08:59 Last Admin: 04/10/17 08:42 Dose: 200 mg Quetiapine Fumarate (Seroquel) 200 mg PO HS KEELY PRN Reason: Protocol Stop: 06/06/17 20:59 Last Admin: 04/09/17 20:59 Dose: 200 mg Tamsulosin HCl (Flomax) 0.4 mg PO DAILY [facility] Stop: 05/28/17 08:59 Last Admin: 04/10/17 08:42 Dose: 0.4 mg Zolpidem Tartrate (Ambien) 10 mg PO HS PRN PRN Reason: Insomnia Stop: 05/21/17 23:53 Last Admin: 04/08/17 22:31 Dose: 10 mg General: alert HEENT: NC/AT, PERRLA Neck: Supple Lungs: CTAB Cardiovascular: RRR, Normal S1, Normal S2, without murmur Abdomen: soft, non-tender, non-distended, positive bowel sound Extremities: clear Neurological: alert - Procedures Procedures: Procedures Procedure Code Date OTHER GROUP THERAPY 94.44 05/24/10 RECREATIONAL THERAPY 93.81 05/24/10 Internal Medicine Assmt/Plan - Assessment Assessment: Current Active Problems Problem Status Onset PATIENT IS UNABLE TO CARE FOR SELF Acute unable to care for self htn bipolar ptsd mrsa nares seasonal allergy - Plan Plan: monitor BP continue bp medications fall precautions cpm Nutritional Asmnt/Malnutr-PDOC - Dietary Evaluation Malnutrition Findings (Please click <Entered> for more info): Nutritional Asmnt/Malnutrition Start: 03/28/17 16: 09 Text: Status: Complete Freq: Document 03/28/17 16:09 GSUN (Rec: 03/28/17 16:20 GSANNE MARIE [email or web address]) Nutritional Asmnt/Malnutrition Patient General Information Nutritional Screening Diagnosis Diagnosis Unable to care for self, HTN, PTSD, bipolar Pertinent Medical Hx/Surgical Hx HTN Subjective Information 71 year old male. Spoke to pt in wheelchair in hallway. Pt was alert and very pleasant. Pt shared with RD information on food for homeless people, appeared to be resourceful in this topic. Pt denied nutritional concerns at this time, stated the food is good, "all is good." Avg PO intake 100% of meals since adm, meeting nutritional needs. Current Diet Order/ Nutrition Support Regular Pertinent Medications MOM, Theragran Pertinent Labs No labs. Nutritional Hx/Data Height 5 ft 9 in Height (Calculated Centimeters) 175.3 Current Weight (lbs) 190 lb Weight (Calculated Kilograms) 86.2 Weight (Calculated Grams) 73461.6 [place] Body Weight 160 Weight Status Overweight GI Symptoms Skin Integrity/Comment: Eloy 20. Skin intact. Current %PO Good (75-100%) Estimated Nutritional Goals Calories/Kcals/Kg IBW 160lb/72.7kg Kcals Calculated 1818-2181kcal (25-30kcal/kg) Protein Calculated 73g (1g/kg) Fluid: ml 1818-2181ml (1ml/kcal) Nutritional Problem 1. Problem Problem No nutritional problem at this time. Intervention/Recommendation Comments 1. Continue with current diet order. Avg PO intake is adequate. Expected Outcomes/Goals Expected Outcomes/Goals 1. PO intake conitnue to meet at least 75% of estimated nutritional needs.
[2017-04-11] MEDS: Multivitamin Tab PO SCH (08:06)
[2017-04-11] MEDS: Fluticasone Propionate 0.05mg/Actuation 16gm Nasal Spray NS SCH ×2 (08:09→16:12)
--- NOTE | 2017-04-11 11:00 | Progress Notes ---
DATE: 04/11/2017 SUBJECTIVE: Chart reviewed and the patient interviewed. Also discussed the patient's condition with the staff and reviewed records and labs. The patient is still manicky and is still argumentative about places where he can live. The patient has no place to live and is still unable to provide safe plan for self care living situation. He is still disheveled and he refuses to shower with foul odor. Also, still argumentative about his abilities and still has grandiose delusions. 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 TREATMENT PLAN: We will place the patient on additional 30-day certificates. Also, we will continue monitoring his behavior and we will continue to follow up closely. JOB# [id number]
--- NOTE | 2017-04-11 13:09 | Internal Medicine Prog Note ---
Internal Medicine Subjective - Subjective Service Date: 04/11/17 Patient is:: awake, verbal, in wheelchair Per staff patient has:: no adverse event Internal Medicine Objective - Results Recent Labs: Laboratory Last Values Urine Source CLEAN C 03/22/17 17:15 Urine Color YELLOW 03/22/17 17:15 Urine Clarity CLEAR (CLEAR) 03/22/17 17:15 Urine pH 6.5 03/22/17 17:15 Ur Specific [place] 1.025 (1.005-1.030) 03/22/17 17:15 Urine Protein 1.0 mg/dL (NEGATIVE) 03/22/17 17:15 Urine Glucose (UA) 100 mg/dL (NEGATIVE) H 03/22/17 17:15 Urine Ketones NEGATIVE mg/dL (NEGATIVE) 03/22/17 17:15 Urine Blood MODERATE (NEGATIVE) H 03/22/17 17:15 Urine Nitrate NEGATIVE (NEGATIVE) 03/22/17 17:15 Urine Bilirubin SMALL (NEGATIVE) H 03/22/17 17:15 Urine Urobilinogen 1.0 E.U./dL (0.2 - 1.0) 03/22/17 17:15 Ur Leukocyte Esterase NEGATIVE (NEGATIVE) 03/22/17 17:15 Urine RBC 5-10 /hpf (0-5) H 03/22/17 17:15 Urine WBC 0-2 /hpf (0-5) 03/22/17 17:15 Ur Epithelial Cells NONE SEEN /lpf (FEW) 03/22/17 17:15 Urine Bacteria NONE SEEN /hpf (NONE SEEN) 03/22/17 17:15 Urine Opiates Screen NEGATIVE (NEGATIVE) 03/22/17 17:15 Urine Methadone Screen NEGATIVE (NEGATIVE) 03/22/17 17:15 Ur Barbiturates Screen NEGATIVE (NEGATIVE) 03/22/17 17:15 Ur Tricyclics Screen NEGATIVE (NEGATIVE) 03/22/17 17:15 Ur Phencyclidine Scrn NEGATIVE (NEGATIVE) 03/22/17 17:15 Amphetamines Screen NEGATIVE (NEGATIVE) 03/22/17 17:15 U Methamphetamines Scrn NEGATIVE (NEGATIVE) 03/22/17 17:15 U Benzodiazepines Scrn NEGATIVE (NEGATIVE) 03/22/17 17:15 U Cocaine Metab Screen NEGATIVE (NEGATIVE) 03/22/17 17:15 U Cannabinoids Screen POSITIVE (NEGATIVE) H 03/22/17 17:15 - Physical Exam Vitals and I&O: Vital Signs Temp 97.3 F 04/11/17 06:50 Pulse 69 04/11/17 11:04 Resp 20 04/11/17 11:04 BP 145/73 04/11/17 08:07 Pulse Ox 97 04/11/17 06:50 Intake & Output 04/10/17 04/11/17 04/11/17 18:59 06:59 18:59 Intake Total 850 300 Balance 850 300 Weight (lbs) 197 lb 8 oz Intake: Oral 850 300 Other: # Voids 4 3 # Bowel Movements 1 0 Active Medications: Current Medications Acetaminophen (Tylenol) 650 mg PO Q4HR PRN PRN Reason: Mild Pain / Temp above 100 Stop: 05/21/17 23:53 Last Admin: 04/08/17 02:06 Dose: 650 mg Al Hydrox/Mg Hydrox/Simethicone (Maalox) 30 ml PO Q4HR PRN PRN Reason: GI DISTRESS Stop: 05/21/17 23:53 Amlodipine Besylate (Norvasc) 5 mg PO DAILY [facility] Stop: 05/23/17 08:59 Last Admin: 04/11/17 08:07 Dose: 5 mg Clonidine HCl (Catapres) 0.1 mg PO Q6HR PRN PRN Reason: SBP GREATER THAN 160 Stop: 05/22/17 12:47 Fluticasone Propionate (Flonase) 1 spr NS BID [facility] Stop: 05/27/17 16:59 Last Admin: 04/11/17 08:09 Dose: 1 spr Lamotrigine (Lamictal) 200 mg PO BID [facility] PRN Reason: Protocol Stop: 05/22/17 16:59 Last Admin: 04/11/17 08:07 Dose: 200 mg Magnesium Hydroxide (Milk Of Magnesia) 30 ml PO HS PRN PRN Reason: Constipation Multivitamins/Vitamin C (Theragran) 1 tab PO DAILY [facility] Stop: 05/22/17 08:59 Last Admin: 04/11/17 08:06 Dose: 1 tab Quetiapine Fumarate (Seroquel) 200 mg PO DAILY [facility] Stop: 05/31/17 08:59 Last Admin: 04/11/17 08:07 Dose: 200 mg Quetiapine Fumarate (Seroquel) 200 mg PO HS [facility] PRN Reason: Protocol Stop: 06/06/17 20:59 Last Admin: 04/10/17 20:36 Dose: 200 mg Tamsulosin HCl (Flomax) 0.4 mg PO DAILY [facility] Stop: 05/28/17 08:59 Last Admin: 04/11/17 08:07 Dose: 0.4 mg Zolpidem Tartrate (Ambien) 10 mg PO HS PRN PRN Reason: Insomnia Stop: 05/21/17 23:53 Last Admin: 04/10/17 22:31 Dose: 10 mg General: alert HEENT: NC/AT, PERRLA Neck: Supple Lungs: CTAB Cardiovascular: RRR, Normal S1, Normal S2, without murmur Abdomen: soft, non-tender, non-distended, positive bowel sound Extremities: clear Neurological: alert - Procedures Procedures: Procedures Procedure Code Date OTHER GROUP THERAPY 94.44 05/24/10 RECREATIONAL THERAPY 93.81 05/24/10 Internal Medicine Assmt/Plan - Assessment Assessment: Current Active Problems Problem Status Onset PATIENT IS UNABLE TO CARE FOR SELF Acute unable to care for self htn bipolar ptsd mrsa nares seasonal allergy - Plan Plan: monitor BP continue bp medications fall precautions cpm Nutritional Asmnt/Malnutr-PDOC - Dietary Evaluation Malnutrition Findings (Please click <Entered> for more info): Nutritional Asmnt/Malnutrition Start: 03/28/17 16: 09 Text: Status: Complete Freq: Document 03/28/17 16:09 GSUN (Rec: 03/28/17 16:20 [email or web address] [email or web address]) Nutritional Asmnt/Malnutrition Patient General Information Nutritional Screening Diagnosis Diagnosis Unable to care for self, HTN, PTSD, bipolar Pertinent Medical Hx/Surgical Hx HTN Subjective Information 71 year old male. Spoke to pt in wheelchair in hallway. Pt was alert and very pleasant. Pt shared with RD information on food for homeless people, appeared to be resourceful in this topic. Pt denied nutritional concerns at this time, stated the food is good, "all is good." Avg PO intake 100% of meals since adm, meeting nutritional needs. Current Diet Order/ Nutrition Support Regular Pertinent Medications MOM, Theragran Pertinent Labs No labs. Nutritional Hx/Data Height 5 ft 9 in Height (Calculated Centimeters) 175.3 Current Weight (lbs) 190 lb Weight (Calculated Kilograms) 86.2 Weight (Calculated Grams) 37139.6 [place] Body Weight 160 Weight Status Overweight GI Symptoms Skin Integrity/Comment: Eloy 20. Skin intact. Current %PO Good (75-100%) Estimated Nutritional Goals Calories/Kcals/Kg IBW 160lb/72.7kg Kcals Calculated 1818-2181kcal (25-30kcal/kg) Protein Calculated 73g (1g/kg) Fluid: ml 1818-2181ml (1ml/kcal) Nutritional Problem 1. Problem Problem No nutritional problem at this time. Intervention/Recommendation Comments 1. Continue with current diet order. Avg PO intake is adequate. Expected Outcomes/Goals Expected Outcomes/Goals 1. PO intake conitnue to meet at least 75% of estimated nutritional needs.
[2017-04-12] MEDS: Fluticasone Propionate 0.05mg/Actuation 16gm Nasal Spray NS SCH ×2 (09:34→16:54)
[2017-04-12] MEDS: Multivitamin Tab PO SCH (09:36)
--- NOTE | 2017-04-12 12:46 | Internal Medicine Prog Note ---
Internal Medicine Subjective - Subjective Service Date: 04/12/17 Patient is:: awake, verbal, in wheelchair Per staff patient has:: no adverse event Internal Medicine Objective - Results Recent Labs: Laboratory Last Values Urine Source CLEAN C 03/22/17 17:15 Urine Color YELLOW 03/22/17 17:15 Urine Clarity CLEAR (CLEAR) 03/22/17 17:15 Urine pH 6.5 03/22/17 17:15 Ur Specific [place] 1.025 (1.005-1.030) 03/22/17 17:15 Urine Protein 1.0 mg/dL (NEGATIVE) 03/22/17 17:15 Urine Glucose (UA) 100 mg/dL (NEGATIVE) H 03/22/17 17:15 Urine Ketones NEGATIVE mg/dL (NEGATIVE) 03/22/17 17:15 Urine Blood MODERATE (NEGATIVE) H 03/22/17 17:15 Urine Nitrate NEGATIVE (NEGATIVE) 03/22/17 17:15 Urine Bilirubin SMALL (NEGATIVE) H 03/22/17 17:15 Urine Urobilinogen 1.0 E.U./dL (0.2 - 1.0) 03/22/17 17:15 Ur Leukocyte Esterase NEGATIVE (NEGATIVE) 03/22/17 17:15 Urine RBC 5-10 /hpf (0-5) H 03/22/17 17:15 Urine WBC 0-2 /hpf (0-5) 03/22/17 17:15 Ur Epithelial Cells NONE SEEN /lpf (FEW) 03/22/17 17:15 Urine Bacteria NONE SEEN /hpf (NONE SEEN) 03/22/17 17:15 Urine Opiates Screen NEGATIVE (NEGATIVE) 03/22/17 17:15 Urine Methadone Screen NEGATIVE (NEGATIVE) 03/22/17 17:15 Ur Barbiturates Screen NEGATIVE (NEGATIVE) 03/22/17 17:15 Ur Tricyclics Screen NEGATIVE (NEGATIVE) 03/22/17 17:15 Ur Phencyclidine Scrn NEGATIVE (NEGATIVE) 03/22/17 17:15 Amphetamines Screen NEGATIVE (NEGATIVE) 03/22/17 17:15 U Methamphetamines Scrn NEGATIVE (NEGATIVE) 03/22/17 17:15 U Benzodiazepines Scrn NEGATIVE (NEGATIVE) 03/22/17 17:15 U Cocaine Metab Screen NEGATIVE (NEGATIVE) 03/22/17 17:15 U Cannabinoids Screen POSITIVE (NEGATIVE) H 03/22/17 17:15 - Physical Exam Vitals and I&O: Vital Signs Temp 97.2 F 04/12/17 05:59 Pulse 68 04/12/17 09:35 Resp 20 04/12/17 05:59 BP 163/86 04/12/17 09:35 Pulse Ox 97 04/12/17 05:59 Intake & Output 04/11/17 04/12/17 04/12/17 18:59 06:59 18:59 Intake Total 1000 Balance 1000 Weight (lbs) 197 lb 8 oz Intake: Oral 1000 Other: # Voids 4 2 # Bowel Movements 1 1 Active Medications: Current Medications Acetaminophen (Tylenol) 650 mg PO Q4HR PRN PRN Reason: Mild Pain / Temp above 100 Stop: 05/21/17 23:53 Last Admin: 04/08/17 02:06 Dose: 650 mg Al Hydrox/Mg Hydrox/Simethicone (Maalox) 30 ml PO Q4HR PRN PRN Reason: GI DISTRESS Stop: 05/21/17 23:53 Amlodipine Besylate (Norvasc) 5 mg PO DAILY [facility] Stop: 05/23/17 08:59 Last Admin: 04/12/17 09:35 Dose: 5 mg Clonidine HCl (Catapres) 0.1 mg PO Q6HR PRN PRN Reason: SBP GREATER THAN 160 Stop: 05/22/17 12:47 Fluticasone Propionate (Flonase) 1 spr NS BID [facility] Stop: 05/27/17 16:59 Last Admin: 04/12/17 09:34 Dose: 1 spr Lamotrigine (Lamictal) 200 mg PO BID [facility] PRN Reason: Protocol Stop: 05/22/17 16:59 Last Admin: 04/11/17 16:12 Dose: 200 mg Magnesium Hydroxide (Milk Of Magnesia) 30 ml PO HS PRN PRN Reason: Constipation Multivitamins/Vitamin C (Theragran) 1 tab PO DAILY [facility] Stop: 05/22/17 08:59 Last Admin: 04/12/17 09:36 Dose: 1 tab Quetiapine Fumarate (Seroquel) 200 mg PO DAILY [facility] Stop: 05/31/17 08:59 Last Admin: 04/12/17 09:35 Dose: 200 mg Quetiapine Fumarate (Seroquel) 200 mg PO HS [facility] PRN Reason: Protocol Stop: 06/06/17 20:59 Last Admin: 04/11/17 20:01 Dose: 200 mg Tamsulosin HCl (Flomax) 0.4 mg PO DAILY [facility] Stop: 05/28/17 08:59 Last Admin: 04/12/17 09:35 Dose: 0.4 mg Zolpidem Tartrate (Ambien) 10 mg PO HS PRN PRN Reason: Insomnia Stop: 05/21/17 23:53 Last Admin: 04/11/17 21:51 Dose: 10 mg General: alert HEENT: NC/AT, PERRLA Neck: Supple Lungs: CTAB Cardiovascular: RRR, Normal S1, Normal S2, without murmur Abdomen: soft, non-tender, non-distended, positive bowel sound Extremities: clear Neurological: alert - Procedures Procedures: Procedures Procedure Code Date OTHER GROUP THERAPY 94.44 05/24/10 RECREATIONAL THERAPY 93.81 05/24/10 Internal Medicine Assmt/Plan - Assessment Assessment: Current Active Problems Problem Status Onset PATIENT IS UNABLE TO CARE FOR SELF Acute unable to care for self htn bipolar ptsd mrsa nares seasonal allergy - Plan Plan: monitor BP continue bp medications fall precautions cpm Nutritional Asmnt/Malnutr-PDOC - Dietary Evaluation Malnutrition Findings (Please click <Entered> for more info): Nutritional Asmnt/Malnutrition Start: 03/28/17 16: 09 Text: Status: Complete Freq: Document 03/28/17 16:09 GSUN (Rec: 03/28/17 16:20 [email or web address] [email or web address]) Nutritional Asmnt/Malnutrition Patient General Information Nutritional Screening Diagnosis Diagnosis Unable to care for self, HTN, PTSD, bipolar Pertinent Medical Hx/Surgical Hx HTN Subjective Information 71 year old male. Spoke to pt in wheelchair in hallway. Pt was alert and very pleasant. Pt shared with RD information on food for homeless people, appeared to be resourceful in this topic. Pt denied nutritional concerns at this time, stated the food is good, "all is good." Avg PO intake 100% of meals since adm, meeting nutritional needs. Current Diet Order/ Nutrition Support Regular Pertinent Medications MOM, Theragran Pertinent Labs No labs. Nutritional Hx/Data Height 5 ft 9 in Height (Calculated Centimeters) 175.3 Current Weight (lbs) 190 lb Weight (Calculated Kilograms) 86.2 Weight (Calculated Grams) 15764.6 [place] Body Weight 160 Weight Status Overweight GI Symptoms Skin Integrity/Comment: El[place] 20. Skin intact. Current %PO Good (75-100%) Estimated Nutritional Goals Calories/Kcals/Kg IBW 160lb/72.7kg Kcals Calculated 1818-2181kcal (25-30kcal/kg) Protein Calculated 73g (1g/kg) Fluid: ml 1818-2181ml (1ml/kcal) Nutritional Problem 1. Problem Problem No nutritional problem at this time. Intervention/Recommendation Comments 1. Continue with current diet order. Avg PO intake is adequate. Expected Outcomes/Goals Expected Outcomes/Goals 1. PO intake conitnue to meet at least 75% of estimated nutritional needs.
--- NOTE | 2017-04-12 21:08 | Progress Notes ---
DATE: 04/12/2017 SUBJECTIVE: Chart reviewed and the patient interviewed. Also discussed the patient's condition with the staff and reviewed records and labs. The patient continues to be argumentative and he is still threatening. Today the patient was threatening to hurt the top case assembler because she is unable to find a place for him and that he is still in the hospital. The patient also is still hyper talkative and intrusive and interruptive to others. He also is still not sleeping much. Also, personal hygiene is still poor and still not bathing or showering. ASSESSMENT: The patient is still considered to be gravely disabled and psychotic. TREATMENT PLAN: Continue monitoring his behavior and his condition and continue psychotropic medications. Also, continue to work on trying to find a placement for the patient and continue to follow up. JOB# [id number]
[2017-04-13] MEDS: Fluticasone Propionate 0.05mg/Actuation 16gm Nasal Spray NS SCH ×2 (08:41→16:32)
[2017-04-13] MEDS: Multivitamin Tab PO SCH (08:42)
--- NOTE | 2017-04-13 14:17 | Internal Medicine Prog Note ---
Internal Medicine Subjective - Subjective Service Date: 04/13/17 Patient is:: awake, verbal, in wheelchair Per staff patient has:: no adverse event Internal Medicine Objective - Results Recent Labs: Laboratory Last Values Urine Source CLEAN C 03/22/17 17:15 Urine Color YELLOW 03/22/17 17:15 Urine Clarity CLEAR (CLEAR) 03/22/17 17:15 Urine pH 6.5 03/22/17 17:15 Ur Specific [place] 1.025 (1.005-1.030) 03/22/17 17:15 Urine Protein 1.0 mg/dL (NEGATIVE) 03/22/17 17:15 Urine Glucose (UA) 100 mg/dL (NEGATIVE) H 03/22/17 17:15 Urine Ketones NEGATIVE mg/dL (NEGATIVE) 03/22/17 17:15 Urine Blood MODERATE (NEGATIVE) H 03/22/17 17:15 Urine Nitrate NEGATIVE (NEGATIVE) 03/22/17 17:15 Urine Bilirubin SMALL (NEGATIVE) H 03/22/17 17:15 Urine Urobilinogen 1.0 E.U./dL (0.2 - 1.0) 03/22/17 17:15 Ur Leukocyte Esterase NEGATIVE (NEGATIVE) 03/22/17 17:15 Urine RBC 5-10 /hpf (0-5) H 03/22/17 17:15 Urine WBC 0-2 /hpf (0-5) 03/22/17 17:15 Ur Epithelial Cells NONE SEEN /lpf (FEW) 03/22/17 17:15 Urine Bacteria NONE SEEN /hpf (NONE SEEN) 03/22/17 17:15 Urine Opiates Screen NEGATIVE (NEGATIVE) 03/22/17 17:15 Urine Methadone Screen NEGATIVE (NEGATIVE) 03/22/17 17:15 Ur Barbiturates Screen NEGATIVE (NEGATIVE) 03/22/17 17:15 Ur Tricyclics Screen NEGATIVE (NEGATIVE) 03/22/17 17:15 Ur Phencyclidine Scrn NEGATIVE (NEGATIVE) 03/22/17 17:15 Amphetamines Screen NEGATIVE (NEGATIVE) 03/22/17 17:15 U Methamphetamines Scrn NEGATIVE (NEGATIVE) 03/22/17 17:15 U Benzodiazepines Scrn NEGATIVE (NEGATIVE) 03/22/17 17:15 U Cocaine Metab Screen NEGATIVE (NEGATIVE) 03/22/17 17:15 U Cannabinoids Screen POSITIVE (NEGATIVE) H 03/22/17 17:15 - Physical Exam Vitals and I&O: Vital Signs Temp 97.6 F 04/13/17 06:51 Pulse 70 04/13/17 08:42 Resp 20 04/13/17 08:00 BP 134/66 04/13/17 08:42 Pulse Ox 95 04/13/17 06:51 Intake & Output 04/12/17 04/13/17 04/13/17 18:59 06:59 18:59 Intake Total 800 Balance 800 Intake: Oral 800 Other: # Voids 3 # Bowel Movements 1 Active Medications: Current Medications Acetaminophen (Tylenol) 650 mg PO Q4HR PRN PRN Reason: Mild Pain / Temp above 100 Stop: 05/21/17 23:53 Last Admin: 04/08/17 02:06 Dose: 650 mg Al Hydrox/Mg Hydrox/Simethicone (Maalox) 30 ml PO Q4HR PRN PRN Reason: GI DISTRESS Stop: 05/21/17 23:53 Amlodipine Besylate (Norvasc) 5 mg PO DAILY [facility] Stop: 05/23/17 08:59 Last Admin: 04/13/17 08:42 Dose: 5 mg Clonidine HCl (Catapres) 0.1 mg PO Q6HR PRN PRN Reason: SBP GREATER THAN 160 Stop: 05/22/17 12:47 Fluticasone Propionate (Flonase) 1 spr NS BID [facility] Stop: 05/27/17 16:59 Last Admin: 04/13/17 08:41 Dose: 1 spr Lamotrigine (Lamictal) 200 mg PO BID [facility] PRN Reason: Protocol Stop: 05/22/17 16:59 Last Admin: 04/13/17 08:42 Dose: 200 mg Magnesium Hydroxide (Milk Of Magnesia) 30 ml PO HS PRN PRN Reason: Constipation Multivitamins/Vitamin C (Theragran) 1 tab PO DAILY [facility] Stop: 05/22/17 08:59 Last Admin: 04/13/17 08:42 Dose: 1 tab Quetiapine Fumarate (Seroquel) 200 mg PO DAILY [facility] Stop: 05/31/17 08:59 Last Admin: 04/13/17 08:41 Dose: 200 mg Quetiapine Fumarate (Seroquel) 200 mg PO HS [facility] PRN Reason: Protocol Stop: 06/06/17 20:59 Last Admin: 04/12/17 21:05 Dose: 200 mg Tamsulosin HCl (Flomax) 0.4 mg PO DAILY [facility] Stop: 05/28/17 08:59 Last Admin: 04/13/17 08:43 Dose: 0.4 mg Zolpidem Tartrate (Ambien) 10 mg PO HS PRN PRN Reason: Insomnia Stop: 05/21/17 23:53 Last Admin: 04/12/17 23:17 Dose: 10 mg General: alert HEENT: NC/AT, PERRLA Neck: Supple Lungs: CTAB Cardiovascular: RRR, Normal S1, Normal S2, without murmur Abdomen: soft, non-tender, non-distended, positive bowel sound Extremities: clear Neurological: alert - Procedures Procedures: Procedures Procedure Code Date OTHER GROUP THERAPY 94.44 05/24/10 RECREATIONAL THERAPY 93.81 05/24/10 Internal Medicine Assmt/Plan - Assessment Assessment: Current Active Problems Problem Status Onset PATIENT IS UNABLE TO CARE FOR SELF Acute unable to care for self htn bipolar ptsd mrsa nares seasonal allergy - Plan Plan: monitor BP continue bp medications fall precautions cpm Nutritional Asmnt/Malnutr-PDOC - Dietary Evaluation Malnutrition Findings (Please click <Entered> for more info): Nutritional Asmnt/Malnutrition Start: 03/28/17 16: 09 Text: Status: Complete Freq: Document 03/28/17 16:09 GSUN (Rec: 03/28/17 16:20 GSANNE [email or web address]) Nutritional Asmnt/Malnutrition Patient General Information Nutritional Screening Diagnosis Diagnosis Unable to care for self, HTN, PTSD, bipolar Pertinent Medical Hx/Surgical Hx HTN Subjective Information 71 year old male. Spoke to pt in wheelchair in hallway. Pt was alert and very pleasant. Pt shared with RD information on food for homeless people, appeared to be resourceful in this topic. Pt denied nutritional concerns at this time, stated the food is good, "all is good." Avg PO intake 100% of meals since adm, meeting nutritional needs. Current Diet Order/ Nutrition Support Regular Pertinent Medications MOM, Theragran Pertinent Labs No labs. Nutritional Hx/Data Height 5 ft 9 in Height (Calculated Centimeters) 175.3 Current Weight (lbs) 190 lb Weight (Calculated Kilograms) 86.2 Weight (Calculated Grams) 41359.6 [place] Body Weight 160 Weight Status Overweight GI Symptoms Skin Integrity/Comment: [place] 20. Skin intact. Current %PO Good (75-100%) Estimated Nutritional Goals Calories/Kcals/Kg IBW 160lb/72.7kg Kcals Calculated 1818-2181kcal (25-30kcal/kg) Protein Calculated 73g (1g/kg) Fluid: ml 1818-2181ml (1ml/kcal) Nutritional Problem 1. Problem Problem No nutritional problem at this time. Intervention/Recommendation Comments 1. Continue with current diet order. Avg PO intake is adequate. Expected Outcomes/Goals Expected Outcomes/Goals 1. PO intake conitnue to meet at least 75% of estimated nutritional needs.
--- NOTE | 2017-04-13 15:32 | Discharge Summary ---
DATE OF DISCHARGE: 04/13/2017 AGE: 71. SEX: Male. FINAL DIAGNOSIS/PRIMARY DIAGNOSIS: Bipolar disorder, manic episode, with psychotic features. REASON FOR HOSPITALIZATION: The patient was admitted to the hospital because of increased agitation and irritability and difficulty following directions. HOSPITAL COURSE: The patient continued to be severely irritable and continued to be severely agitated. The patient also was in angry mood. The patient also was disheveled and he did not want to bathe or shower and personal hygiene was poor. The patient also was intrusive to others and hyperverbal. The patient was started on lithium and on Seroquel. Gradually, the patient's affect was brighter, but the patient had difficulty with his placement and no place accepted the patient. [facility] and the patient was discharged there. PHYSICAL EXAMINATION: Basically with no major medical problems. AFTER DISCHARGE PLANS: The patient discharged from the hospital with plans for outpatient treatment in [facility]. EXPECTED OUTCOME AFTER DISCHARGE: Guarded because of patient's history with his noncompliance with treatment and medications and with his aggressive behavior. JOB# [id number]
== END 2017-04-13 16:50 | DRG 885 ==
LOC: ER 17:13 → GERO 23:23
PROVIDERS: ADMIT Psychiatry & Neurology Psychiatry; ATTEND Psychiatry & Neurology Psychiatry
DX: F25.0 Schizoaffective disorder, bipolar type (principal); F03.90 Unspecified dementia, unspecified severity, without behavioral disturbance, psychotic disturbance, mood disturbance, and anxiety; I10 Essential (primary) hypertension; F43.10 Post-traumatic stress disorder, unspecified; E78.5 Hyperlipidemia, unspecified; R62.7 Adult failure to thrive; F17.210 Nicotine dependence, cigarettes, uncomplicated; F41.9 Anxiety disorder, unspecified; Z59.0 Homelessness; Z88.8 Allergy status to other drugs, medicaments and biological substances; Z79.899 Other long term (current) drug therapy
CPT/HCPCS: 80307; 81001-TC; 90899; 93005; G0410; Z7610